=== PATIENT | female | born 1965 | race African-American/Black ===

== ENCOUNTER 2017-03-02 22:11 | Emergency (ER) | payer OTHER ==
[~2017-03-02] VITALS: Ht 170.2 cm; Wt 90.7 kg
[~2017-03-02 22:11] MED LIST: CARI-316 PO; HYDR-2616 PO
[2017-03-02 23:20] LABS: Basophils # (auto) 0 uL; Basophils % (auto) 0.1 % (0.0-2.0); CONDITION Y; Eosinophils # (auto) 0.1 uL; Eosinophils % (auto) 1.9 % (0.0-7.0); Hematocrit 32.4 % (36.0-46.0); Hemoglobin 10.7 g/dL (12.2-16.2); Lymphocytes # (auto) 1.6 uL; Lymphocytes % (auto) 35.5 % (10.0-50.0); Mean Corpuscular Hemoglobin 28.4 pg (28.0-32.0); Mean Corpuscular Hgb Conc. 33.1 g/dL (32.0-36.0); Mean Corpuscular Volume 85.7 fL (80.0-100.0); Monocytes # (auto) 0.6 uL; Neutrophils # (auto) 2.2 uL; Neutrophils % (auto) 48.5 % (37.0-80.0); Platelet Count (auto) 296 10^3/uL (140-450); Red Cell Distribution Width 13.1 % (11.6-16.0); White Blood Cell 4.6 10^3/uL (4.4-10.8)
[2017-03-02 23:58] LABS: Albumin 3.1 g/dL (3.4-5.0); Bilirubin, Total 0.3 mg/dL (0.2-1.0); Calcium 10.2 mg/dL (8.5-10.1); Potassium 3.8 mmol/L (3.5-5.1); Total Protein 6.7 g/dL (6.4-8.2)
[2017-03-03 05:40] VITALS: BP 148/98
[2017-03-03 06:28] LABS: Urine Bilirubin Negative (Negative); Urine Blood Negative /uL (Negative); Urine Ca Oxalate Crystal FEW (None Seen); Urine Color Yellow (Yellow); Urine Glucose Normal (Normal); Urine Ketone Negative (Negative); Urine Mucus FEW (None Seen); Urine Nitrite Negative (Negative); Urine RBC 2 /hpf (0 - 4); Urine Squamous Epithelial Cell FEW /hpf (<5); Urine Urobilinogen Normal (Negative); Urine pH 5.5 (5.0-8.0)
== END 2017-03-03 07:01 | disposition home or self-care (01) ==
LOC: EDBD 22:11 → ER 22:17
DX: R07.9 Chest pain, unspecified (principal); N39.0 Urinary tract infection, site not specified; I10 Essential (primary) hypertension; E78.5 Hyperlipidemia, unspecified; F17.210 Nicotine dependence, cigarettes, uncomplicated; Z88.6 Allergy status to analgesic agent; R06.02 Shortness of breath
CPT/HCPCS: 36415; 71020; 80053; 80307; 81001; 83880; 84484; 85025

== ENCOUNTER 2017-05-16 14:58 | Emergency (ER) | payer OTHER ==
[~2017-05-16] VITALS: Ht 167.6 cm; Wt 68.0 kg
[2017-05-16 15:52] LABS: Basophils # (auto) 0 uL; Eosinophils # (auto) 0.1 uL; Eosinophils % (auto) 1.5 % (0.0-7.0); Hematocrit 31.2 % (36.0-46.0); Hemoglobin 10.3 g/dL (12.2-16.2); Lymphocytes # (auto) 1.9 uL; Lymphocytes % (auto) 30.7 % (10.0-50.0); Mean Corpuscular Hemoglobin 28.2 pg (28.0-32.0); Mean Corpuscular Hgb Conc. 32.9 g/dL (32.0-36.0); Mean Corpuscular Volume 85.9 fL (80.0-100.0); Mean Platelet Volume 7.6 fL (6.9-10.8); Monocytes # (auto) 0.6 uL; Monocytes % (auto) 10.5 % (0.0-12.0); Neutrophils # (auto) 3.5 uL; Neutrophils % (auto) 57.3 % (37.0-80.0); Nucleated Red Blood Cells % 0.1 %; Platelet Count (auto) 262 10^3/uL (140-450); Red Cell Distribution Width 13.7 % (11.8-14.3); White Blood Cell 6.1 10^3/uL (4.4-10.8)
[2017-05-16 16:27] LABS: Albumin 3.3 g/dL (3.4-5.0); BUN/Creatinine Ratio 39.1; Bilirubin, Total 0.7 mg/dL (0.2-1.0); Calcium 9.5 mg/dL (8.5-10.1); Potassium 3.5 mmol/L (3.5-5.1); Total Protein 6.8 g/dL (6.4-8.2)
[2017-05-16 18:06] VITALS: BP 136/75
[2017-05-16] MEDS ORDERED: LORazepam 2MG/ML-1ML VIAL IM ONE (18:15)
[2017-05-16] MEDS ORDERED: KETOROLAC TROMETH 60MG/2ML VIAL IM ONE (18:15)
== END 2017-05-16 19:31 | disposition home or self-care (01) ==
LOC: EDBD 14:58 → ER 15:06
DX: S92.355A Nondisplaced fracture of fifth metatarsal bone, left foot, initial encounter for closed fracture (principal); I10 Essential (primary) hypertension; E78.5 Hyperlipidemia, unspecified; F17.210 Nicotine dependence, cigarettes, uncomplicated; Z88.6 Allergy status to analgesic agent; W01.0XXA Fall on same level from slipping, tripping and stumbling without subsequent striking against object, initial encounter; Y93.89 Activity, other specified; Y99.8 Other external cause status; Y92.89 Other specified places as the place of occurrence of the external cause
CPT/HCPCS: 36415; 71010; 73610; 73620; 80053; 84484; 85025; 93005; 96372; 99285; J1885; J2060

== ENCOUNTER 2017-06-01 02:48 | Inpatient (IN) | payer MEDICAID, OTHER ==
[~2017-06-01] VITALS: Ht 175.3 cm; Wt 77.2 kg
[2017-06-01 04:04] LABS: Basophils # (auto) 0 uL; Basophils % (auto) 0.2 % (0.0-2.0); Eosinophils # (auto) 0.2 uL; Eosinophils % (auto) 2.9 % (0.0-7.0); Hematocrit 31.6 % (36.0-46.0); Hemoglobin 10.4 g/dL (12.2-16.2); Lymphocytes # (auto) 2.4 uL; Lymphocytes % (auto) 37.5 % (10.0-50.0); Mean Corpuscular Hemoglobin 28.3 pg (28.0-32.0); Mean Corpuscular Hgb Conc. 32.9 g/dL (32.0-36.0); Mean Platelet Volume 7.5 fL (6.9-10.8); Monocytes # (auto) 0.6 uL; Monocytes % (auto) 9.7 % (0.0-12.0); Neutrophils # (auto) 3.1 uL; Neutrophils % (auto) 49.7 % (37.0-80.0); Nucleated Red Blood Cells % 0.1 %; Platelet Count (auto) 263 10^3/uL (140-450); Red Cell Distribution Width 13.7 % (11.8-14.3); White Blood Cell 6.3 10^3/uL (4.4-10.8)
[2017-06-01 04:30] LABS: Albumin 3.2 g/dL (3.4-5.0); BUN/Creatinine Ratio 36.4; Bilirubin, Total 0.4 mg/dL (0.2-1.0); Calcium 9.2 mg/dL (8.5-10.1); Potassium 3.5 mmol/L (3.5-5.1); Total Protein 6.6 g/dL (6.4-8.2)
[2017-06-01 04:34] LABS: B-Type Natriuretic Peptide 474.26 pg/mL (0-100)
[2017-06-01 05:02] LABS: Temperature: 21.8 C (20.0-25.0)
[2017-06-01] MEDS ORDERED: FUROSEMIDE 20 MG/2 ML VIAL IV ONE (05:45)
[2017-06-01] MEDS ORDERED: ASPirin 81 mg TAB PO ONE (06:00)
[2017-06-01] MEDS ORDERED: LACTULOSE 20Gm/30ML SOLN PO PRN (06:00)
[2017-06-01] MEDS ORDERED: MORPHINE SULF INJ 2 MG/ML SYRINGE 1ML IV PRN (06:00)
[2017-06-01] MEDS ORDERED: NITROGLYCERIN 0.4 MG SL TAB SL PRN (06:00)
[2017-06-01] MEDS ORDERED: HYDROmorphone HCL 2 MG/ML VL IV PRN (06:15)
[2017-06-01] MEDS: SODIUM CHLORIDE 0.9% 1,000 ML IV SCH ×2 (07:25→16:34)
[2017-06-01] MEDS: HYDROcodone-ACET 5/325MG TAB PO PRN ×3 (08:27→23:01)
[2017-06-01 08:29] VITALS: BP 132/76
[2017-06-01] MEDS ORDERED: ALPR0.25 PO (08:50)
[2017-06-01] MEDS ORDERED: OMEP20CA74 OR (08:50)
[2017-06-01] MEDS ORDERED: PROM25TA5 PO (08:50)
[2017-06-01] MEDS ORDERED: CALCCHW17 OR (08:50)
[2017-06-01] MEDS: FUROSEMIDE 40 MG/4 ML VIAL IV SCH (10:16)
[2017-06-01] MEDS: PANTOPRAZOLE 40 MG/10 ML VIAL IV SCH (10:16)
[2017-06-01] MEDS: POTASSIUM CHL 20 Meq TABLET PO SCH (10:17)
[2017-06-01] MEDS: ENALAPRIL MALEATE 2.5 MG TAB PO SCH (10:17)
[2017-06-01] MEDS: METOPROLOL TARTRATE 25 MG TAB PO SCH ×2 (10:17→21:16)
[2017-06-01] MEDS: ENOXAPARIN SOD 30 MG/0.3 ML SYRINGE SC SCH ×2 (10:17→10:26)
[2017-06-01] MEDS: ALPRAZolam 0.5 MG TAB PO PRN ×2 (10:26→20:22)
[2017-06-01] MEDS: ASPirin 81 mg TAB PO SCH (10:27)
[2017-06-01] MEDS ORDERED: DEXTROSE (50%) 50ML SYRG IV PRN (12:45)
[2017-06-01 12:57] VITALS: BP 119/75
[2017-06-01 15:57] LABS: Urine RBC None Seen /hpf (0 - 4)
[2017-06-01 16:13] VITALS: BP 120/66
[2017-06-01 16:15] LABS: Urine Bilirubin Negative (Negative); Urine Blood Negative /uL (Negative); Urine Color Yellow (Yellow); Urine Glucose Normal (Normal); Urine Hyaline Cast FEW /lpf (0 - 2); Urine Ketone Negative (Negative); Urine Nitrite Negative (Negative); Urine Squamous Epithelial Cell FEW /hpf (<5); Urine Urobilinogen Normal (Negative)
[2017-06-01] MEDS: ACCU-CHEK COMFORT CURVE STRIP VI SCH ×2 (16:25→21:16)
[2017-06-01] MEDS: InsuLIN REG 1unit/0.01ml Soln (100units/ml) SC SCH ×2 (16:33→21:16)
[2017-06-01] MEDS: Boost Glucose Control 8 Ounces PO SCH (18:05)
[2017-06-01] MEDS: ATORVASTATIN 20 MG TAB PO SCH (21:15)
[2017-06-01 21:42] VITALS: BP 122/72
[2017-06-02 05:16] VITALS: BP 115/70
[2017-06-02] MEDS: ACCU-CHEK COMFORT CURVE STRIP VI SCH ×4 (05:26→22:00)
[2017-06-02] MEDS: SODIUM CHLORIDE 0.9% 1,000 ML IV SCH ×2 (05:26→19:25)
[2017-06-02] MEDS: InsuLIN REG 1unit/0.01ml Soln (100units/ml) SC SCH ×3 (05:26→17:00)
[2017-06-02 06:08] LABS: Basophils # (auto) 0 uL; Basophils % (auto) 0.2 % (0.0-2.0); Eosinophils # (auto) 0.2 uL; Eosinophils % (auto) 4.8 % (0.0-7.0); Hematocrit 34.7 % (36.0-46.0); Hemoglobin 11.2 g/dL (12.2-16.2); Lymphocytes # (auto) 2.2 uL; Lymphocytes % (auto) 50.2 % (10.0-50.0); Mean Corpuscular Hemoglobin 27.7 pg (28.0-32.0); Mean Corpuscular Hgb Conc. 32.3 g/dL (32.0-36.0); Mean Corpuscular Volume 85.9 fL (80.0-100.0); Mean Platelet Volume 7.8 fL (6.9-10.8); Monocytes # (auto) 0.6 uL; Monocytes % (auto) 14.7 % (0.0-12.0); Neutrophils # (auto) 1.3 uL; Neutrophils % (auto) 30.1 % (37.0-80.0); Nucleated Red Blood Cells % 0.1 %; Platelet Count (auto) 281 10^3/uL (140-450); White Blood Cell 4.3 10^3/uL (4.4-10.8)
[2017-06-02 06:36] LABS: Albumin 3.3 g/dL (3.4-5.0); Alkaline Phosphatase 187 U/L (45-117); Anion Gap 9 (5-15); Aspartate Aminotransferase 23 U/L (15-37); BUN/Creatinine Ratio 67.9; Bilirubin, Total 0.4 mg/dL (0.2-1.0); Blood Urea Nitrogen 19 mg/dL (7-18); Calcium 9.6 mg/dL (8.5-10.1); Carbon Dioxide 27 mmol/L (21-32); Chloride 104 mmol/L (98-107); Cholesterol 128 mg/dL (< 200); GFR African American 325 mL/min; GFR Non-African American 269 mL/min; Glucose 77 mg/dL (74-106); HDL Cholesterol 41 mg/dL (40-59); LDL Cholesterol 88 mg/dL (< 100); Potassium 3.8 mmol/L (3.5-5.1); Sodium 140 mmol/L (136-145); Total Protein 6.8 g/dL (6.4-8.2); Triglycerides 77 mg/dL (< 150)
[2017-06-02] MEDS: Boost Glucose Control 8 Ounces PO SCH ×3 (08:18→18:12)
[2017-06-02 08:20] LABS: Temperature: 23.7 C (20.0-25.0)
[2017-06-02] MEDS: PANTOPRAZOLE 40 MG/10 ML VIAL IV SCH (08:39)
[2017-06-02] MEDS: ALPRAZolam 0.5 MG TAB PO PRN ×2 (08:39→20:22)
[2017-06-02 08:48] VITALS: BP 111/67
[2017-06-02 10:07] LABS: Thyroxine (T4) 17.9 ug/dL (4.5-12.0)
[2017-06-02] MEDS: HYDROcodone-ACET 5/325MG TAB PO PRN ×2 (10:22→18:37)
[2017-06-02] MEDS: FUROSEMIDE 40 MG/4 ML VIAL IV SCH (10:23)
[2017-06-02] MEDS: POTASSIUM CHL 20 Meq TABLET PO SCH (10:23)
[2017-06-02] MEDS: ASPirin 81 mg TAB PO SCH (10:23)
[2017-06-02] MEDS: ENALAPRIL MALEATE 2.5 MG TAB PO SCH (10:23)
[2017-06-02] MEDS: METOPROLOL TARTRATE 25 MG TAB PO SCH (10:23)
[2017-06-02 12:30] VITALS: BP 97/41
[2017-06-02 17:00] VITALS: BP 118/60
[2017-06-02 21:56] VITALS: BP 127/74
[2017-06-02] MEDS ORDERED: ACETAMINOPHEN 500 MG TAB PO PRN (23:30)
[2017-06-03] MEDS: ATORVASTATIN 20 MG TAB PO SCH ×2 (00:18→21:45)
[2017-06-03] MEDS: InsuLIN REG 1unit/0.01ml Soln (100units/ml) SC SCH ×5 (00:19→21:52)
[2017-06-03] MEDS: METOPROLOL TARTRATE 25 MG TAB PO SCH ×3 (00:19→21:45)
[2017-06-03] MEDS: ALPRAZolam 0.5 MG TAB PO PRN (04:10)
[2017-06-03 05:19] VITALS: BP 121/73
[2017-06-03] MEDS: ACCU-CHEK COMFORT CURVE STRIP VI SCH ×4 (05:21→21:45)
[2017-06-03] MEDS: HYDROcodone-ACET 5/325MG TAB PO PRN ×2 (06:50→19:58)
[2017-06-03] MEDS: Boost Glucose Control 8 Ounces PO SCH ×3 (08:22→18:02)
[2017-06-03 09:00] VITALS: BP 127/62
[2017-06-03] MEDS: PANTOPRAZOLE 40 MG/10 ML VIAL IV SCH (09:48)
[2017-06-03] MEDS: ASPirin 81 mg TAB PO SCH (09:48)
[2017-06-03] MEDS: FUROSEMIDE 40 MG/4 ML VIAL IV SCH (09:48)
[2017-06-03] MEDS: SODIUM CHLORIDE 0.9% 1,000 ML IV SCH (09:49)
[2017-06-03] MEDS: ENALAPRIL MALEATE 2.5 MG TAB PO SCH (09:49)
[2017-06-03] MEDS: POTASSIUM CHL 20 Meq TABLET PO SCH (09:49)
[2017-06-03] MEDS: ENOXAPARIN SOD 30 MG/0.3 ML SYRINGE SC SCH (09:50)
[2017-06-03 13:00] VITALS: BP 113/65
[2017-06-03] MEDS: diphenhdrAMINE HCL 25 MG CAP PO PRN (14:19)
[2017-06-03 17:00] VITALS: BP 121/95
[2017-06-03 22:23] VITALS: BP 111/60
[2017-06-04] MEDS: HYDROcodone-ACET 5/325MG TAB PO PRN ×4 (01:59→23:32)
[2017-06-04 05:17] VITALS: BP 125/58
[2017-06-04] MEDS: ACCU-CHEK COMFORT CURVE STRIP VI SCH ×4 (06:48→22:08)
[2017-06-04] MEDS: InsuLIN REG 1unit/0.01ml Soln (100units/ml) SC SCH ×4 (06:49→22:16)
[2017-06-04 09:00] VITALS: BP 128/87
[2017-06-04] MEDS: ENOXAPARIN SOD 30 MG/0.3 ML SYRINGE SC SCH (10:00)
[2017-06-04] MEDS: Boost Glucose Control 8 Ounces PO SCH ×3 (10:11→18:00)
[2017-06-04] MEDS: PANTOPRAZOLE 40 MG/10 ML VIAL IV SCH (10:11)
[2017-06-04] MEDS: FUROSEMIDE 40 MG/4 ML VIAL IV SCH (10:11)
[2017-06-04] MEDS: METOPROLOL TARTRATE 25 MG TAB PO SCH ×3 (10:12→23:08)
[2017-06-04] MEDS: ASPirin 81 mg TAB PO SCH (10:12)
[2017-06-04 12:56] VITALS: BP 144/84
[2017-06-04 16:56] VITALS: BP 125/67
[2017-06-04] MEDS: diphenhdrAMINE HCL 25 MG CAP PO PRN (17:23)
[2017-06-04 22:00] VITALS: BP 131/65
[2017-06-04] MEDS: ATORVASTATIN 20 MG TAB PO SCH (22:08)
[2017-06-05 05:00] VITALS: BP 118/67
[2017-06-05] MEDS: HYDROcodone-ACET 5/325MG TAB PO PRN ×2 (05:32→16:09)
[2017-06-05] MEDS: ACCU-CHEK COMFORT CURVE STRIP VI SCH ×4 (06:36→21:55)
[2017-06-05] MEDS: InsuLIN REG 1unit/0.01ml Soln (100units/ml) SC SCH ×4 (06:37→21:55)
[2017-06-05 09:00] VITALS: BP 124/83
[2017-06-05] MEDS: FUROSEMIDE 40 MG/4 ML VIAL IV SCH (09:55)
[2017-06-05] MEDS: PANTOPRAZOLE 40 MG/10 ML VIAL IV SCH (09:55)
[2017-06-05] MEDS: ASPirin 81 mg TAB PO SCH (09:55)
[2017-06-05] MEDS: METOPROLOL TARTRATE 25 MG TAB PO SCH ×2 (09:55→21:55)
[2017-06-05] MEDS: Boost Glucose Control 8 Ounces PO SCH ×3 (10:04→17:48)
[2017-06-05] MEDS: ENOXAPARIN SOD 30 MG/0.3 ML SYRINGE SC SCH (10:04)
[2017-06-05 13:00] VITALS: BP_SYST 110; BP_SYST 121; BP_DIAS 62; BP_DIAS 78
[2017-06-05] MEDS: ALPRAZolam 0.5 MG TAB PO PRN (13:38)
[2017-06-05 17:00] VITALS: BP 147/70
[2017-06-05] MEDS: ATORVASTATIN 20 MG TAB PO SCH (21:54)
[2017-06-05 22:00] VITALS: BP 117/81
[2017-06-06] MEDS: HYDROcodone-ACET 5/325MG TAB PO PRN ×2 (02:45→08:47)
[2017-06-06 05:00] VITALS: BP 128/73
[2017-06-06] MEDS: InsuLIN REG 1unit/0.01ml Soln (100units/ml) SC SCH ×2 (07:00→11:30)
[2017-06-06] MEDS: ACCU-CHEK COMFORT CURVE STRIP VI SCH ×2 (07:00→11:30)
[2017-06-06 08:00] VITALS: BP 127/71
[2017-06-06] MEDS: Boost Glucose Control 8 Ounces PO SCH ×2 (08:00→12:00)
[2017-06-06 08:49] VITALS: BP 127/71
[2017-06-06] MEDS: FUROSEMIDE 40 MG/4 ML VIAL IV SCH ×2 (10:00→10:43)
[2017-06-06] MEDS: PANTOPRAZOLE 40 MG/10 ML VIAL IV SCH (10:42)
[2017-06-06] MEDS: ENOXAPARIN SOD 30 MG/0.3 ML SYRINGE SC SCH (10:43)
[2017-06-06] MEDS: ASPirin 81 mg TAB PO SCH (10:43)
[2017-06-06] MEDS: METOPROLOL TARTRATE 25 MG TAB PO SCH (10:43)
[2017-06-06 13:00] VITALS: BP 132/79
[2017-06-06 14:11] VITALS: BP 127/71
== END 2017-06-06 14:35 | disposition home or self-care (01) | DRG 424 ==
LOC: EDBD 02:48 → ER 02:48 → TELE 02:49 → TELE-E-ADS 08:13 → TELE-WESTW 10:48
PROVIDERS: ADMIT Family Medicine; ATTEND Internal Medicine Pulmonary Disease
DX: E05.20 Thyrotoxicosis with toxic multinodular goiter without thyrotoxic crisis or storm (principal); I11.0 Hypertensive heart disease with heart failure; E44.0 Moderate protein-calorie malnutrition; I50.9 Heart failure, unspecified; E78.5 Hyperlipidemia, unspecified; F41.9 Anxiety disorder, unspecified; K21.9 Gastro-esophageal reflux disease without esophagitis; D63.8 Anemia in other chronic diseases classified elsewhere; Z88.5 Allergy status to narcotic agent; Z82.49 Family history of ischemic heart disease and other diseases of the circulatory system; Z82.3 Family history of stroke; Z68.25 Body mass index [BMI] 25.0-25.9, adult
CPT/HCPCS: 36415; 71010; 76536; 80053; 80061; 81001; 82962; 83036; 83880; 84443; 84484; 85025; 87081; 93005; 93306; 96374; 96375; 96376; C9113; J1815

== ENCOUNTER 2017-06-23 16:36 | Inpatient (IN) | payer OTHER ==
[~2017-06-23] VITALS: Ht 167.6 cm; Wt 72.9 kg
[~2017-06-23 16:36] MED LIST changes: +ALPR0.25 PO; +CALCCHW17 OR; +OMEP20CA74 OR; +PROM25TA5 PO
[2017-06-23 18:21] LABS: Basophils # (auto) 0 uL; Basophils % (auto) 0.2 % (0.0-2.0); Eosinophils # (auto) 0.1 uL; Eosinophils % (auto) 1.5 % (0.0-7.0); Hematocrit 35.7 % (36.0-46.0); Hemoglobin 11.6 g/dL (12.2-16.2); Lymphocytes # (auto) 1.9 uL; Mean Corpuscular Hemoglobin 27.9 pg (28.0-32.0); Mean Corpuscular Hgb Conc. 32.5 g/dL (32.0-36.0); Mean Corpuscular Volume 85.8 fL (80.0-100.0); Monocytes # (auto) 0.7 uL; Neutrophils # (auto) 2.2 uL; Neutrophils % (auto) 45.3 % (37.0-80.0); Nucleated Red Blood Cells % 0.1 %; Platelet Count (auto) 255 10^3/uL (140-450); Red Blood Cells 4.16 10^6/uL (4.0-5.20); Red Cell Distribution Width 13.8 % (11.8-14.3); White Blood Cell 4.9 10^3/uL (4.4-10.8)
[2017-06-23 18:39] LABS: Alanine Aminotransferase 60 U/L (13-56); Albumin 3.5 g/dL (3.4-5.0); Alkaline Phosphatase 245 U/L (45-117); Anion Gap 6 (5-15); Aspartate Aminotransferase 40 U/L (15-37); Bilirubin, Total 0.4 mg/dL (0.2-1.0); Blood Urea Nitrogen 16 mg/dL (7-18); Carbon Dioxide 28 mmol/L (21-32); Chloride 110 mmol/L (98-107); GFR African American 279 mL/min; GFR Non-African American 230 mL/min; Glucose 93 mg/dL (74-106); Magnesium 1.8 mg/dL (1.6-2.6); Potassium 4.5 mmol/L (3.5-5.1); Sodium 144 mmol/L (136-145); Total Protein 7.1 g/dL (6.4-8.2)
[2017-06-23] MEDS ORDERED: diphenhdrAMINE HCL 50 MG/1 ML VL IV ONE (20:30)
[2017-06-23 22:32] LABS: Urine Amorphous Crystal FEW /hpf (None Seen); Urine Bacteria NONE SEEN /hpf (None Seen); Urine Blood Negative /uL (Negative); Urine Specific Gravity 1.014 (1.001-1.035); Urine WBC 1 /hpf (0 - 5)
[2017-06-23 22:37] LABS: Alcohol, Urine < 3.0 mg/dL (0-5); Amphetamine Screen, Urine NEGATIVE (NEGATIVE); Barbiturate Scree,Urine NEGATIVE (NEGATIVE); Benzodiazephine Screen, Urine NEGATIVE (NEGATIVE); Cannabinoid Screen, Urine NEGATIVE (NEGATIVE); Cocaine Screen, Urine NEGATIVE (NEGATIVE); Opiate Scree,Urine NEGATIVE (NEGATIVE); Phencyclidine Screen, Urine NEGATIVE (NEGATIVE)
[2017-06-23] MEDS ORDERED: HYDROcodone-ACET 5/325MG TAB PO PRN (23:45)
[2017-06-23] MEDS ORDERED: NITROGLYCERIN 0.4 MG SL TAB SL PRN (23:45)
[2017-06-24] VITALS (7 sets, daily range): BP systolic 128–139; BP diastolic 66–81
[2017-06-24] MEDS ORDERED: ONDANSETRON HCL 4 MG/2 ML VIAL IV PRN ×2
[2017-06-24] MEDS: ALPRAZolam 0.5 MG TAB PO PRN ×2 (01:40→22:18)
[2017-06-24] MEDS ORDERED: PANT40TA2 PO (02:55)
[2017-06-24] MEDS ORDERED: MET50T PO (02:55)
[2017-06-24 06:39] LABS: Basophils # (auto) 0 uL; Basophils % (auto) 0.3 % (0.0-2.0); Eosinophils # (auto) 0.1 uL; Eosinophils % (auto) 2.3 % (0.0-7.0); Hematocrit 34.2 % (36.0-46.0); Hemoglobin 11.1 g/dL (12.2-16.2); Lymphocytes # (auto) 2.4 uL; Lymphocytes % (auto) 48.9 % (10.0-50.0); Mean Corpuscular Hemoglobin 27.9 pg (28.0-32.0); Mean Corpuscular Hgb Conc. 32.4 g/dL (32.0-36.0); Mean Corpuscular Volume 85.9 fL (80.0-100.0); Monocytes # (auto) 0.7 uL; Monocytes % (auto) 13.4 % (0.0-12.0); Neutrophils # (auto) 1.7 uL; Neutrophils % (auto) 35.1 % (37.0-80.0); Nucleated Red Blood Cells % 0.3 %; Platelet Count (auto) 231 10^3/uL (140-450); Red Blood Cells 3.98 10^6/uL (4.0-5.20); Red Cell Distribution Width 13.5 % (11.8-14.3)
[2017-06-24 06:57] LABS: Anion Gap 9 (5-15); BUN/Creatinine Ratio 43.3; Blood Urea Nitrogen 13 mg/dL (7-18); Calcium 9.7 mg/dL (8.5-10.1); Carbon Dioxide 28 mmol/L (21-32); Chloride 106 mmol/L (98-107); GFR African American 300 mL/min; GFR Non-African American 248 mL/min; Glucose 100 mg/dL (74-106); Potassium 3.6 mmol/L (3.5-5.1); Sodium 143 mmol/L (136-145)
[2017-06-24] MEDS: PANTOPRAZOLE 40 MG TAB PO SCH (09:48)
[2017-06-24] MEDS: METOPROLOL TARTRATE 25 MG TAB PO SCH ×2 (09:51→22:18)
[2017-06-24] MEDS ORDERED: diphenhdrAMINE HCL 25 MG CAP PO ONE (17:15)
[2017-06-25] MEDS: TEMAZEPAM 15 MG CAP PO PRN (00:32)
[2017-06-25 05:23] VITALS: BP 144/68
[2017-06-25 08:00] VITALS: BP 136/76
[2017-06-25 08:08] LABS: Albumin 3.2 g/dL (3.4-5.0); BUN/Creatinine Ratio 41.4; Bilirubin, Total 0.8 mg/dL (0.2-1.0); Calcium 10.3 mg/dL (8.5-10.1); Potassium 3.6 mmol/L (3.5-5.1); Total Protein 6.8 g/dL (6.4-8.2)
[2017-06-25 08:23] VITALS: BP 136/76
[2017-06-25] MEDS: PANTOPRAZOLE 40 MG TAB PO SCH (09:35)
[2017-06-25] MEDS: METOPROLOL TARTRATE 25 MG TAB PO SCH ×2 (09:35→21:30)
[2017-06-25 12:10] VITALS: BP 126/67
[2017-06-25 16:31] VITALS: BP 127/65
[2017-06-25] MEDS: ALPRAZolam 0.5 MG TAB PO PRN (21:29)
[2017-06-25 22:08] VITALS: BP 136/73
[2017-06-26] MEDS: TEMAZEPAM 15 MG CAP PO PRN (01:11)
[2017-06-26 05:49] VITALS: BP 118/64
[2017-06-26] MEDS ORDERED: ADENOSINE 61 MG in GIVE UN-DILUTED 0 ML IV STA (07:55)
[2017-06-26 09:00] VITALS: BP 122/70
[2017-06-26 12:16] VITALS: BP 122/70
[2017-06-26] MEDS: PANTOPRAZOLE 40 MG TAB PO SCH (12:44)
[2017-06-26] MEDS: METOPROLOL TARTRATE 25 MG TAB PO SCH (12:44)
[2017-06-26 13:00] VITALS: BP 127/73
[2017-06-26 17:00] VITALS: BP 121/71
== END 2017-06-26 18:05 | disposition home or self-care (01) | DRG 198 ==
LOC: ER 16:36 → EDBD 16:36 → TELE 16:37 → TELE-CENTR 06-24 01:30
PROVIDERS: ADMIT Nurse Practitioner Family; ATTEND Internal Medicine
DX: R07.89 Other chest pain (principal); I25.10 Atherosclerotic heart disease of native coronary artery without angina pectoris; I11.0 Hypertensive heart disease with heart failure; I50.9 Heart failure, unspecified; D64.9 Anemia, unspecified; E05.00 Thyrotoxicosis with diffuse goiter without thyrotoxic crisis or storm; K21.9 Gastro-esophageal reflux disease without esophagitis; E03.9 Hypothyroidism, unspecified; F17.210 Nicotine dependence, cigarettes, uncomplicated; F41.9 Anxiety disorder, unspecified; Z79.899 Other long term (current) drug therapy; Z82.3 Family history of stroke; Z82.49 Family history of ischemic heart disease and other diseases of the circulatory system; Z86.73 Personal history of transient ischemic attack (TIA), and cerebral infarction without residual deficits; Z88.5 Allergy status to narcotic agent
CPT/HCPCS: 36415; 71010; 78452; 80048; 80053; 80307; 81001; 83735; 84484; 85025; 87081; 93005; 93017; 93306; 96374; J0153

== ENCOUNTER 2017-07-22 02:38 | Emergency (ER) | payer OTHER ==
[~2017-07-22] VITALS: Ht 175.3 cm; Wt 71.2 kg
[~2017-07-22 02:38] MED LIST changes: -ALPR0.25 PO; -CALCCHW17 OR; -CARI-316 PO; -HYDR-2616 PO; +MET50T PO; -OMEP20CA74 OR; +PANT40TA2 PO; -PROM25TA5 PO
[2017-07-22] MEDS ORDERED: cloNIDine HCL 0.1 MG TAB PO ONE (03:00)
[2017-07-22] MEDS ORDERED: ONDANSETRON HCL 4 MG/2 ML VIAL IV ONE (03:00)
[2017-07-22] MEDS ORDERED: MEPERIDINE HCL (50 MG/ML) 1 ML VIAL IV ONE (03:00)
[2017-07-22 03:30] LABS: Basophils # (auto) 0 uL; Basophils % (auto) 0.4 % (0.0-2.0); Eosinophils # (auto) 0.1 uL; Eosinophils % (auto) 1.5 % (0.0-7.0); Hematocrit 32.8 % (36.0-46.0); Hemoglobin 10.6 g/dL (12.2-16.2); Lymphocytes # (auto) 2.4 uL; Mean Corpuscular Hemoglobin 27.5 pg (28.0-32.0); Mean Corpuscular Hgb Conc. 32.3 g/dL (32.0-36.0); Mean Corpuscular Volume 85.4 fL (80.0-100.0); Mean Platelet Volume 7.8 fL (6.9-10.8); Monocytes # (auto) 0.8 uL; Monocytes % (auto) 15.8 % (0.0-12.0); Neutrophils # (auto) 1.9 uL; Neutrophils % (auto) 36.3 % (37.0-80.0); Nucleated Red Blood Cells % 0.2 %; Platelet Count (auto) 243 10^3/uL (140-450); Red Cell Distribution Width 13.4 % (11.8-14.3); White Blood Cell 5.2 10^3/uL (4.4-10.8)
[2017-07-22] MEDS ORDERED: diphenhdrAMINE HCL 50 MG/1 ML VL IV ONE (03:30)
[2017-07-22 03:46] LABS: Anion Gap 8 (5-15); Aspartate Aminotransferase 25 U/L (15-37); BUN/Creatinine Ratio 34.3; Blood Urea Nitrogen 12 mg/dL (7-18); Calcium 9.6 mg/dL (8.5-10.1); Carbon Dioxide 27 mmol/L (21-32); Chloride 109 mmol/L (98-107); GFR African American 251 mL/min; GFR Non-African American 208 mL/min; Glucose 108 mg/dL (74-106); Magnesium 1.5 mg/dL (1.6-2.6); Potassium 3.6 mmol/L (3.5-5.1); Sodium 144 mmol/L (136-145)
[2017-07-22 03:48] LABS: INR 1.03 (0.9-1.15); Partial Thromboplastin Time 28.6 sec (22.64-33.71); Prothrombin Time 11.2 sec (9.37-12.3)
[2017-07-22 03:51] LABS: Alkaline Phosphatase 180 U/L (45-117); Bilirubin, Total 0.4 mg/dL (0.2-1.0); Total Protein 6.5 g/dL (6.4-8.2)
[2017-07-22 03:56] LABS: Temperature: 21.3 C (20.0-25.0)
[2017-07-22] MEDS ORDERED: FUROSEMIDE 20 MG/2 ML VIAL IV ONE (05:15)
[2017-07-22 11:50] VITALS: BP 140/77
== END 2017-07-22 11:43 | disposition home or self-care (01) ==
LOC: EDBD 02:38 → ER 02:43
DX: I11.0 Hypertensive heart disease with heart failure (principal); I50.9 Heart failure, unspecified; F41.9 Anxiety disorder, unspecified; K21.9 Gastro-esophageal reflux disease without esophagitis; E78.5 Hyperlipidemia, unspecified; F17.210 Nicotine dependence, cigarettes, uncomplicated; Z88.6 Allergy status to analgesic agent
CPT/HCPCS: 36415; 71010; 80053; 83735; 83880; 84443; 84484; 85025; 85610; 85730; 93005; 94761; 96374; 96375; 99285; J1200; J1940; J2175; J2405

== ENCOUNTER 2019-04-26 13:39 | Emergency (ER) | payer MEDICAID, OTHER ==
[~2019-04-26] VITALS: Ht 177.8 cm; Wt 90.7 kg
[2019-04-26 15:24] LABS: Basophils # (auto) 0 uL; Basophils % (auto) 0.5 % (0.0-2.0); Eosinophils # (auto) 0.4 uL; Eosinophils % (auto) 6.4 % (0.0-7.0); Hematocrit 39.9 % (36.0-46.0); Hemoglobin 13.2 g/dL (12.2-16.2); Lymphocytes # (auto) 1.8 uL; Lymphocytes % (auto) 30.4 % (10.0-50.0); Mean Corpuscular Hgb Conc. 33.2 g/dL (32.0-36.0); Mean Corpuscular Volume 93.4 fL (80.0-100.0); Monocytes # (auto) 0.4 uL; Monocytes % (auto) 6.5 % (0.0-12.0); Neutrophils # (auto) 3.3 uL; Neutrophils % (auto) 56.2 % (37.0-80.0); Nucleated Red Blood Cells % 0.1 %; Platelet Count (auto) 284 10^3/uL (140-450); Red Blood Cells 4.27 10^6/uL (4.0-5.20); Red Cell Distribution Width 13.7 % (11.8-14.3); White Blood Cell 5.9 10^3/uL (4.4-10.8)
[2019-04-26 15:46] LABS: Albumin 3.8 g/dL (3.4-5.0); Anion Gap 4 (5-15); Blood Urea Nitrogen 9 mg/dL (7-18); Calcium 8.7 mg/dL (8.5-10.1); Carbon Dioxide 27 mmol/L (21-32); Chloride 109 mmol/L (98-107); Glucose 90 mg/dL (74-106); Potassium 4.3 mmol/L (3.5-5.1); Sodium 140 mmol/L (136-145)
[2019-04-26 15:51] LABS: Alanine Aminotransferase 14 U/L (13-56); Alkaline Phosphatase 116 U/L (45-117); Aspartate Aminotransferase 11 U/L (15-37); BUN/Creatinine Ratio 16.4; Bilirubin, Total 0.4 mg/dL (0.2-1.0); GFR African American 148 mL/min; GFR Non-African American 122 mL/min; Total Protein 7.3 g/dL (6.4-8.2)
[2019-04-26] MEDS ORDERED: ACETAMINOPHEN 325 MG TAB PO ONE (20:45)
[2019-04-26 21:43] VITALS: BP 133/75
== END 2019-04-26 22:23 | disposition home or self-care (01) ==
LOC: ER 13:39 → EDBD 13:39 → EDUNIT# 13:39 → ER 22:21
DX: I16.0 Hypertensive urgency (principal); K21.9 Gastro-esophageal reflux disease without esophagitis; E78.00 Pure hypercholesterolemia, unspecified; F17.210 Nicotine dependence, cigarettes, uncomplicated; Z88.5 Allergy status to narcotic agent; Z79.899 Other long term (current) drug therapy
CPT/HCPCS: 36415; 71045; 80053; 84484; 85025; 93005

== ENCOUNTER 2020-05-24 13:51 | Inpatient (IN) | payer MEDICAID ==
[~2020-05-24] VITALS: Ht 175.3 cm; Wt 98.5 kg
[2020-05-24] MEDS ORDERED: ASPirin 81 mg TAB PO ONE (15:00)
[2020-05-24 15:28] LABS: Basophils # (auto) 0 10 ^3/uL (0-0.2); Basophils % (auto) 0.3 % (0.0-2.0); Eosinophils # (auto) 0.2 10 ^3/uL (0-0.8); Hematocrit 39.5 % (36.0-46.0); Hemoglobin 12.9 g/dL (12.2-16.2); Lymphocytes # (auto) 1.7 10 ^3/uL (0.4-5.4); Lymphocytes % (auto) 33.9 % (10.0-50.0); Mean Corpuscular Hemoglobin 31.7 pg (28.0-32.0); Mean Corpuscular Hgb Conc. 32.7 g/dL (32.0-36.0); Mean Corpuscular Volume 96.7 fL (80.0-100.0); Monocytes # (auto) 0.4 10 ^3/uL (0-1.3); Monocytes % (auto) 7.5 % (0.0-12.0); Neutrophils # (auto) 2.7 10 ^3/uL (1.6-8.6); Neutrophils % (auto) 54.3 % (37.0-80.0); Nucleated Red Blood Cells % 0.1 %; Platelet Count (auto) 266 10^3/uL (140-450); Red Blood Cells 4.08 10^6/uL (4.0-5.20); Red Cell Distribution Width 14.7 % (11.8-14.3); White Blood Cell 4.9 10^3/uL (4.4-10.8)
[2020-05-24 15:46] LABS: Albumin 4.3 g/dL (3.4-5.0); Anion Gap 2 (5-15); Blood Urea Nitrogen 13 mg/dL (7-18); Calcium 8.9 mg/dL (8.5-10.1); Carbon Dioxide 28 mmol/L (21-32); Chloride 113 mmol/L (98-107); Glucose 83 mg/dL (74-106); Potassium 4.4 mmol/L (3.5-5.1); Sodium 143 mmol/L (136-145)
[2020-05-24 15:52] LABS: Alanine Aminotransferase 19 U/L (13-56); Alkaline Phosphatase 116 U/L (45-117); Aspartate Aminotransferase 11 U/L (15-37); Bilirubin, Total 0.3 mg/dL (0.2-1.0); GFR African American 94 mL/min; GFR Non-African American 78 mL/min; Total Protein 7.4 g/dL (6.4-8.2)
[2020-05-24] MEDS ORDERED: NITROGLYCERIN 0.4 MG SL TAB SL PRN ×2 (17:15→20:30)
[2020-05-24] MEDS ORDERED: METH10TA6 PO (17:49)
[2020-05-24] MEDS ORDERED: CHOL20009 PO (17:49)
[2020-05-24] MEDS ORDERED: LEVO75TA6 PO (17:49)
[2020-05-24] MEDS ORDERED: BACL10TA PO (17:49)
[2020-05-24] MEDS ORDERED: HYDR-392 PO (17:49)
[2020-05-24] MEDS ORDERED: PROM25TA5 PO (17:49)
[2020-05-24] MEDS ORDERED: ACET-1304 PO (17:50)
[2020-05-24] MEDS ORDERED: DIPH25TA35 PO (17:50)
[2020-05-24] MEDS ORDERED: METOPROLOL TARTRATE 25 MG TAB PO ONE (20:30)
[2020-05-24] MEDS: SODIUM CHLORIDE 0.9% 1,000 ML IV SCH (20:30)
[2020-05-24] MEDS ORDERED: ATORVASTATIN 20 MG TAB PO ONE (20:30)
[2020-05-24] MEDS ORDERED: ALUM & MAG HYDROX-SIMETH LIQ(MAALOX) 30 ML PO ONE (20:30)
[2020-05-24] MEDS ORDERED: HYDROcodone-ACET 5/325MG TAB PO PRN (20:30)
[2020-05-24] MEDS ORDERED: ACETAMINOPHEN 325 MG TAB PO PRN (20:30)
[2020-05-24] MEDS ORDERED: ONDANSETRON HCL 4 MG/2 ML VIAL IV PRN (20:30)
[2020-05-24] MEDS ORDERED: ACETAMINOPHEN 500 MG TAB PO PRN (20:30)
[2020-05-24] MEDS ORDERED: BACLOFEN 10 MG TAB PO PRN (20:30)
[2020-05-24] MEDS ORDERED: LORazepam 0.5 MG TAB PO PRN (20:30)
[2020-05-24] MEDS: HYDROcodone-ACET 7.5/325MG TAB PO PRN (21:00)
[2020-05-24] MEDS: ENOXAPARIN SOD 30 MG/0.3 ML SYRINGE SC SCH (21:37)
--- NOTE | 2020-05-24 21:40 | NUR ---
TELE ADMIT FROM ER Received patient from ER via wheelchair, VS are as followed, HR:54 BP: 147/81 RR:18 TEMP:98.1 O2:96%. Patient denies pain at this time. Currently on RA with no S/S of distress or SOB noted. PIV to the left hand 22 gauge running 75ml/hr of NS. Ambulatory without assistance. Patient is on Tele monitor #26 running Sinus Joseph at 54bpm. Patient is oriented to room and hospital policies. Bed in lowest position, locked, side rails x2 up, call light within reach. POC discussed and all questions answered. Patient is instructed to call for assistance as needed. Will continue to monitor PRN.
[2020-05-24 22:00] VITALS: BP 147/81
[2020-05-24] MEDS ORDERED: methIMAzole 5 MG TAB PO SCH ×2 (22:00)
[2020-05-24] MEDS: METOPROLOL TARTRATE 25 MG TAB PO SCH (22:00)
[2020-05-24] MEDS: FAMOTIDINE 20 MG TAB PO SCH (22:21)
[2020-05-24] MEDS: ATORVASTATIN 20 MG TAB PO SCH (22:21)
[2020-05-24 23:17] VITALS: BP 147/81
[2020-05-25] MEDS: HYDROcodone-ACET 7.5/325MG TAB PO PRN ×2 (04:26→19:38)
[2020-05-25] MEDS: hydrALAZINE HCL 25 MG TAB PO PRN (05:23)
[2020-05-25 05:30] VITALS: BP 159/79
[2020-05-25] MEDS: LEVOTHYROXINE SODIUM 25 MCG TAB PO SCH (06:32)
[2020-05-25] MEDS ORDERED: LEVOTHYROXINE SODIUM 25 MCG TAB PO SCH (07:00)
[2020-05-25 08:00] VITALS: BP 147/90
[2020-05-25] MEDS: CALCIUM CARB 500 MG CHEW TAB PO SCH ×3 (08:00→17:22)
--- NOTE | 2020-05-25 08:00 | NUR ---
Received pt resting in bed, call light within reach, no pain or distress noted or reported, will continue to monitor pt.
[2020-05-25] MEDS: FAMOTIDINE 20 MG TAB PO SCH ×2 (08:59→21:10)
[2020-05-25] MEDS: ASPirin 81 mg TAB PO SCH (08:59)
[2020-05-25 09:00] VITALS: BP 147/90
[2020-05-25] MEDS: METOPROLOL TARTRATE 25 MG TAB PO SCH ×2 (09:00→21:11)
[2020-05-25] MEDS: DOCUSATE SOD 100 MG CAP PO SCH (09:02)
[2020-05-25] MEDS: SODIUM CHLORIDE 0.9% 1,000 ML IV SCH ×2 (09:03→23:10)
[2020-05-25] MEDS: CHOLECALCIFEROL (VITD3) 2,000 UNIT CAP PO SCH (09:03)
[2020-05-25] MEDS: ENOXAPARIN SOD 30 MG/0.3 ML SYRINGE SC SCH (09:03)
--- NOTE | 2020-05-25 11:20 | NUR ---
Paged and left a message for Dr. 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
[2020-05-25 13:00] VITALS: BP 149/96
[2020-05-25 17:00] VITALS: BP 134/89
[2020-05-25] MEDS: ATORVASTATIN 20 MG TAB PO SCH (21:10)
[2020-05-25 22:05] VITALS: BP 130/80
[2020-05-26 05:07] VITALS: BP 131/62
[2020-05-26] MEDS: LEVOTHYROXINE SODIUM 25 MCG TAB PO SCH (05:53)
--- NOTE | 2020-05-26 06:52 | NUR ---
end of shift note will endorse pt care to day shift RN. pt aox4, no s/s of distress or sob
[2020-05-26 07:10] LABS: BUN/Creatinine Ratio 17.8; Calcium 8.8 mg/dL (8.5-10.1)
[2020-05-26 08:00] VITALS: BP 158/87
[2020-05-26] MEDS ORDERED: ADENOSINE 84 MG in GIVE UN-DILUTED 0 ML IV STA (08:33)
[2020-05-26 09:00] VITALS: BP 158/87
--- NOTE | 2020-05-26 09:20 | NUR ---
PT OFF UNIT FOR STRESS TEST.
[2020-05-26] MEDS: CHOLECALCIFEROL (VITD3) 2,000 UNIT CAP PO SCH (10:00)
[2020-05-26] MEDS: FAMOTIDINE 20 MG TAB PO SCH ×2 (10:39→22:23)
[2020-05-26] MEDS: CALCIUM CARB 500 MG CHEW TAB PO SCH ×3 (10:40→17:07)
[2020-05-26] MEDS: DOCUSATE SOD 100 MG CAP PO SCH (10:40)
[2020-05-26] MEDS: ASPirin 81 mg TAB PO SCH (10:40)
[2020-05-26] MEDS: ENOXAPARIN SOD 30 MG/0.3 ML SYRINGE SC SCH (10:41)
[2020-05-26] MEDS: METOPROLOL TARTRATE 25 MG TAB PO SCH ×2 (10:46→22:00)
[2020-05-26] MEDS: HYDROcodone-ACET 7.5/325MG TAB PO PRN ×2 (10:55→20:59)
[2020-05-26] MEDS: SODIUM CHLORIDE 0.9% 1,000 ML IV SCH (12:44)
[2020-05-26 12:58] VITALS: BP 138/90
[2020-05-26 16:46] VITALS: BP 126/89
[2020-05-26 17:31] LABS: Basophils # (auto) 0 10 ^3/uL (0-0.2); Basophils % (auto) 0.3 % (0.0-2.0); Eosinophils # (auto) 0.1 10 ^3/uL (0-0.8); Eosinophils % (auto) 3.2 % (0.0-7.0); Hematocrit 38.8 % (36.0-46.0); Hemoglobin 12.8 g/dL (12.2-16.2); Lymphocytes # (auto) 1.4 10 ^3/uL (0.4-5.4); Lymphocytes % (auto) 31.6 % (10.0-50.0); Mean Corpuscular Hemoglobin 31.7 pg (28.0-32.0); Mean Corpuscular Volume 96.1 fL (80.0-100.0); Monocytes # (auto) 0.4 10 ^3/uL (0-1.3); Monocytes % (auto) 8.3 % (0.0-12.0); Neutrophils # (auto) 2.5 10 ^3/uL (1.6-8.6); Neutrophils % (auto) 56.6 % (37.0-80.0); Nucleated Red Blood Cells % 0.1 %; Platelet Count (auto) 260 10^3/uL (140-450); Red Blood Cells 4.04 10^6/uL (4.0-5.20); White Blood Cell 4.4 10^3/uL (4.4-10.8)
[2020-05-26 17:49] LABS: BUN/Creatinine Ratio 16.9; Calcium 9.1 mg/dL (8.5-10.1); Potassium 4.2 mmol/L (3.5-5.1)
[2020-05-26 17:56] LABS: INR 1.04 (0.9-1.15); Partial Thromboplastin Time 32.2 sec (23.0-31.2)
--- NOTE | 2020-05-26 19:50 | NUR ---
Opening Shift Note Assumed care of patient. Awake, alert and oriented x4. No S/S of distress/SOB or pain at this time. Instructed on POC and to call for assist PRN. Bed locked, in lowest position, call light within reach, side rails up x2. Will continue to monitor for changes Q1hr and PRN.
--- NOTE | 2020-05-26 20:40 | NUR ---
Pt reporting chest pain Chest pain 02/25. EKG done shows NSR, no change from previous. BP 133/84, P 58. Pt given [place], refused Nitro and has allergy to morphine. After EKG done pt was stating that "the pain isn't really that bad and I'm not sure if it's in my chest". Will continue to monitor
[2020-05-26 22:00] VITALS: BP 133/84
[2020-05-26] MEDS: ATORVASTATIN 20 MG TAB PO SCH (22:23)
[2020-05-27] MEDS: SODIUM CHLORIDE 0.9% 1,000 ML IV SCH ×2 (03:17→15:10)
[2020-05-27] MEDS: HYDROcodone-ACET 7.5/325MG TAB PO PRN ×3 (03:23→16:43)
[2020-05-27 05:00] VITALS: BP 113/74
[2020-05-27] MEDS: LEVOTHYROXINE SODIUM 25 MCG TAB PO SCH (06:26)
--- NOTE | 2020-05-27 07:38 | NUR ---
Opening Shift Note Assumed care of patient from noc shift rn. Pt. Awake, A/O x4. No S/S of distress/SOB, reports 7/10 generalized body pain, will medicate per eMAR. Plan of care discussed, encouraged to call for assist PRN. Bed locked, in lowest position, call light within reach, side rails up x2. Will continue to monitor for changes Q1hr and PRN.
[2020-05-27 08:00] VITALS: BP 150/79
[2020-05-27] MEDS: CALCIUM CARB 500 MG CHEW TAB PO SCH ×3 (08:00→18:00)
[2020-05-27 09:00] VITALS: BP 150/79
[2020-05-27] MEDS: FAMOTIDINE 20 MG TAB PO SCH (09:46)
[2020-05-27] MEDS: ASPirin 81 mg TAB PO SCH (09:46)
[2020-05-27] MEDS: hydrALAZINE HCL 25 MG TAB PO PRN (09:48)
[2020-05-27] MEDS: ENOXAPARIN SOD 30 MG/0.3 ML SYRINGE SC SCH (09:48)
[2020-05-27] MEDS: CHOLECALCIFEROL (VITD3) 2,000 UNIT CAP PO SCH (09:48)
[2020-05-27] MEDS: METOPROLOL TARTRATE 25 MG TAB PO SCH (09:49)
[2020-05-27] MEDS: DOCUSATE SOD 100 MG CAP PO SCH (09:50)
--- NOTE | 2020-05-27 12:00 | NUR ---
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
[2020-05-27] MEDS ORDERED: MIDAZOLAM HCL 1MG/1ML-2 ML VIAL ONE (13:48)
[2020-05-27] MEDS ORDERED: ANGIOMAX 250 MG VIAL IV ONE (13:48)
[2020-05-27] MEDS ORDERED: fentaNYL CITRATE 100 MCG/2 ML VL ONE (13:48)
[2020-05-27] MEDS ORDERED: LIDOCAINE 2%HCL (LOCAL ANESTH.) INJ 20ML MDV ONE (13:49)
[2020-05-27] MEDS ORDERED: SODIUM CHL 0.9% 0 ML ONE (13:49)
[2020-05-27] MEDS ORDERED: IOHEXOL 350 MG/ML 100ML IJ ONE (14:00)
--- NOTE | 2020-05-27 15:45 | NUR ---
PATIENT BACK S/P LEFT HEART CATH PROCEDURE. NO INTERVENTION DONE. GROIN ACCESS SITE IS INTACT, NO BLEEDING NOTED. WILL CONTINUE TO MONITOR Q1HR AND PRN. REMINDED PATIENT TO REMAIN LAYING FLAT UNTIL 1630.
[2020-05-27 17:00] VITALS: BP 109/66
[2020-05-27] MEDS ORDERED: methylPREDNISolone SOD SUCC 125 MG/2 ML VL ONE (17:06)
[2020-05-27 18:36] VITALS: BP 109/60
--- NOTE | 2020-05-27 18:58 | NUR ---
ENDORSED DISCHARGE TO NOC SHIFT RN, POM AT BEDSIDE.
[2020-05-27 19:08] VITALS: BP 150/79
--- NOTE | 2020-05-27 19:58 | NUR ---
Pt discharged home All questions answered. Pt verbalized understanding. Paperwork for FU and pt discharge information given to pt. Tele box, IV, ID bands removed.
== END 2020-05-27 19:57 | disposition home or self-care (01) | DRG 192 ==
LOC: ER 13:51 → TELE 13:52 → TELE-CENTR 21:40
PROVIDERS: ADMIT Hospitalist; ATTEND Internal Medicine
PROC: 4A023N7 Measurement of Cardiac Sampling and Pressure, Left Heart, Percutaneous Approach (ICD-10-PCS; principal; 2020-05-27)
PROC: B211YZZ Fluoroscopy of Multiple Coronary Arteries using Other Contrast (ICD-10-PCS; 2020-05-27)
PROC: B215YZZ Fluoroscopy of Left Heart using Other Contrast (ICD-10-PCS; 2020-05-27)
DX: R07.9 Chest pain, unspecified (principal); E66.01 Morbid (severe) obesity due to excess calories; F17.210 Nicotine dependence, cigarettes, uncomplicated; E05.00 Thyrotoxicosis with diffuse goiter without thyrotoxic crisis or storm; K21.9 Gastro-esophageal reflux disease without esophagitis; E78.5 Hyperlipidemia, unspecified; R00.1 Bradycardia, unspecified; F41.9 Anxiety disorder, unspecified; I11.0 Hypertensive heart disease with heart failure; K29.70 Gastritis, unspecified, without bleeding; I50.30 Unspecified diastolic (congestive) heart failure; F03.90 Unspecified dementia, unspecified severity, without behavioral disturbance, psychotic disturbance, mood disturbance, and anxiety; Z88.5 Allergy status to narcotic agent; Z82.49 Family history of ischemic heart disease and other diseases of the circulatory system; Z82.3 Family history of stroke; Z79.899 Other long term (current) drug therapy; Z68.31 Body mass index [BMI] 31.0-31.9, adult; I25.10 Atherosclerotic heart disease of native coronary artery without angina pectoris
CPT/HCPCS: 36415; 71046; 78452; 80048; 80053; 83036; 84443; 84484; 85025; 85610; 85730; 93005; 93017; 93306; 93458; 96360; 99152; G0378; J0153; J2250

== ENCOUNTER 2022-01-15 10:06 | Emergency (ER) | payer OTHER, MEDICAID ==
[~2022-01-15] VITALS: Ht 175.3 cm; Wt 95.7 kg
[~2022-01-15 10:06] MED LIST changes: +ACET-1304 PO; +BACL10TA PO; +CHOL20009 PO; +DIPH25TA35 PO; +HYDR-392 PO; +LEVO75TA6 PO; +METH10TA6 PO; -PANT40TA2 PO; +PROM25TA5 PO
[2022-01-15 10:15] VITALS: BP 156/88
[2022-01-15 12:57] LABS: Basophils # (auto) 0.1 10 ^3/uL (0-0.2); Basophils % (auto) 0.8 % (0.0-2.0); Eosinophils # (auto) 0.1 10 ^3/uL (0-0.8); Eosinophils % (auto) 2.3 % (0.0-7.0); Hematocrit 41.1 % (36.0-46.0); Hemoglobin 13.6 g/dL (12.2-16.2); Lymphocytes # (auto) 1.4 10 ^3/uL (0.4-5.4); Lymphocytes % (auto) 23.1 % (10.0-50.0); Mean Corpuscular Hgb Conc. 33.2 g/dL (32.0-36.0); Mean Corpuscular Volume 93.3 fL (80.0-100.0); Monocytes # (auto) 0.6 10 ^3/uL (0-1.3); Monocytes % (auto) 9.9 % (0.0-12.0); Neutrophils % (auto) 63.9 % (37.0-80.0); Red Cell Distribution Width 13.4 % (11.8-14.3); White Blood Cell 6.2 10^3/uL (4.4-10.8)
[2022-01-15 13:18] LABS: Albumin 3.8 g/dL (3.4-5.0); Calcium 8.9 mg/dL (8.5-10.1); Potassium 4.4 mmol/L (3.5-5.1)
[2022-01-15 13:23] LABS: BUN/Creatinine Ratio 27.3; Bilirubin, Total 0.4 mg/dL (0.2-1.0)
[2022-01-15 13:49] LABS: Urine Bacteria NONE SEEN /hpf (None Seen); Urine Blood 3+ /uL (Negative); Urine Budding Yeast MANY /hpf (None Seen); Urine Specific Gravity 1.016 (1.001-1.035); Urine WBC 373 /hpf (0 - 5); Urine WBC Clumps PRESENT /hpf (None Seen)
[2022-01-15] MEDS ORDERED: NITR-87 PO (14:14)
[2022-01-15] MEDS ORDERED: cloNIDine HCL 0.1 MG TAB PO ONE (14:15)
[2022-01-15] MEDS ORDERED: cefTRIAXone W LIDOCAINE 1 GM IM IM ONE (14:15)
[2022-01-15] MEDS ORDERED: LIDOCAINE 1% (LOCAL ANESTH.) PF 5ml SDV ONE (14:42)
[2022-01-15] MEDS ORDERED: cefTRIAXone SOD 1,000 MG VL ONE ×2 (14:42)
[2022-01-15] MEDS ORDERED: ONDANSETRON ODT 4 MG TAB PO ONE (14:45)
== END 2022-01-15 15:35 | disposition home or self-care (01) ==
LOC: ER 10:06
DX: N39.0 Urinary tract infection, site not specified (principal); I10 Essential (primary) hypertension; I11.0 Hypertensive heart disease with heart failure; I50.9 Heart failure, unspecified; E03.9 Hypothyroidism, unspecified; E78.5 Hyperlipidemia, unspecified; K21.9 Gastro-esophageal reflux disease without esophagitis; F17.210 Nicotine dependence, cigarettes, uncomplicated; Z79.899 Other long term (current) drug therapy; Z88.5 Allergy status to narcotic agent
CPT/HCPCS: 36415; 80053; 81001; 85025; 96372; 99283; J0696; Q0162

== ENCOUNTER 2023-03-06 10:42 | Emergency (ER) | payer OTHER, MEDICAID ==
[~2023-03-06] VITALS: Ht 170.2 cm; Wt 50.0 kg
[~2023-03-06 10:42] MED LIST changes: +METH-552 PO; -METH10TA6 PO; +NITR-87 PO; +PROM25TA10 PO; -PROM25TA5 PO
[2023-03-06] MEDS ORDERED: SODIUM CHLORIDE 0.9% 1,000 ML IV ONE (11:30)
[2023-03-06 11:44] LABS: Basophils # (auto) 0 10 ^3/uL (0-0.2); Basophils % (auto) 0.2 % (0.0-2.0); Eosinophils # (auto) 0.1 10 ^3/uL (0-0.8); Eosinophils % (auto) 2.4 % (0.0-7.0); Hematocrit 39.9 % (36.0-46.0); Hemoglobin 13.1 g/dL (12.2-16.2); Lymphocytes # (auto) 0.4 10 ^3/uL (0.4-5.4); Lymphocytes % (auto) 9.6 % (10.0-50.0); Mean Corpuscular Volume 94.2 fL (80.0-100.0); Monocytes # (auto) 0.5 10 ^3/uL (0-1.3); Monocytes % (auto) 11.3 % (0.0-12.0); Neutrophils # (auto) 3.4 10 ^3/uL (1.6-8.6); Neutrophils % (auto) 76.5 % (37.0-80.0); Red Blood Cells 4.23 10^6/uL (4.0-5.20); Red Cell Distribution Width 12.9 % (11.8-14.3); White Blood Cell 4.5 10^3/uL (4.4-10.8)
[2023-03-06 11:58] LABS: Albumin 3.8 g/dL (3.4-5.0); Potassium 3.8 mmol/L (3.5-5.1)
[2023-03-06 12:01] LABS: BUN/Creatinine Ratio 21.6 (10.0-20.0); Bilirubin, Total 0.3 mg/dL (0.2-1.0); Total Protein 7.2 g/dL (6.4-8.2)
[2023-03-06] MEDS ORDERED: HYDROcodone-ACET 5/325MG TAB PO ONE (14:00)
[2023-03-06 14:11] VITALS: BP 118/67; PULSE 76; RESP 16; TEMP 99.2; O2SAT 99
[2023-03-06] MEDS ORDERED: DexAMETHasone SOD PHOS 10MG/1ML VIAL INJ IV ONE (14:45)
[2023-03-06] MEDS ORDERED: DEX4T PO (15:01)
== END 2023-03-06 14:59 | disposition home or self-care (01) ==
LOC: EDBD 10:42 → ER 10:42
DX: U07.1 COVID-19 (principal); I10 Essential (primary) hypertension; Z98.890 Other specified postprocedural states
CPT/HCPCS: 36415; 70450; 71045; 80053; 83605; 84484; 85025; 86308; 87040; 87070; 87426; 87804; 87880; 93005; 96361; 96374; 99285; J1100; J7030

== ENCOUNTER 2023-03-23 02:20 | Emergency (ER) | payer OTHER, MEDICAID ==
[~2023-03-23] VITALS: Ht 170.2 cm; Wt 95.5 kg
[~2023-03-23 02:20] MED LIST changes: +DEX4T PO
[2023-03-23 05:27] VITALS: BP 112/93; PULSE 65; RESP 19; TEMP 97.6; O2SAT 98
[2023-03-23] MEDS ORDERED: KETOROLAC TROMETH 60MG/2ML VIAL IM ONE (07:15)
== END 2023-03-23 07:47 | disposition home or self-care (01) ==
LOC: ER 02:20 → EDBD 02:20 → ER 07:45
DX: G44.209 Tension-type headache, unspecified, not intractable (principal); F41.1 Generalized anxiety disorder; F41.9 Anxiety disorder, unspecified; K21.9 Gastro-esophageal reflux disease without esophagitis; E78.5 Hyperlipidemia, unspecified; F17.210 Nicotine dependence, cigarettes, uncomplicated; I10 Essential (primary) hypertension; Z88.5 Allergy status to narcotic agent; Z79.899 Other long term (current) drug therapy; Z90.710 Acquired absence of both cervix and uterus; Z98.890 Other specified postprocedural states
CPT/HCPCS: 70450; 93005; 96372; 99285; J1885

== ENCOUNTER 2023-07-29 07:43 | Emergency (ER) | payer OTHER, MEDICAID ==
[~2023-07-29] VITALS: Ht 170.2 cm; Wt 80.0 kg
[2023-07-29 08:34] LABS: Basophils # (auto) 0 10 ^3/uL (0-0.2); Basophils % (auto) 0.3 % (0.0-2.0); Eosinophils # (auto) 0.2 10 ^3/uL (0-0.8); Eosinophils % (auto) 3.2 % (0.0-7.0); Hematocrit 39.5 % (36.0-46.0); Hemoglobin 13.1 g/dL (12.2-16.2); Lymphocytes # (auto) 2.1 10 ^3/uL (0.4-5.4); Lymphocytes % (auto) 40.3 % (10.0-50.0); Mean Corpuscular Hemoglobin 30.5 pg (28.0-32.0); Mean Corpuscular Hgb Conc. 33.2 g/dL (32.0-36.0); Mean Corpuscular Volume 91.7 fL (80.0-100.0); Monocytes # (auto) 0.5 10 ^3/uL (0-1.3); Monocytes % (auto) 9.8 % (0.0-12.0); Neutrophils # (auto) 2.4 10 ^3/uL (1.6-8.6); Neutrophils % (auto) 46.4 % (37.0-80.0); Red Cell Distribution Width 13.2 % (11.8-14.3); White Blood Cell 5.2 10^3/uL (4.4-10.8)
[2023-07-29 08:58] LABS: Alanine Aminotransferase 28 U/L (7-40); Albumin 4.3 g/dL (3.2-4.8); Alkaline Phosphatase 100 U/L (46-116); Anion Gap 7 (5-15); Aspartate Aminotransferase 14 U/L (13-40); BUN/Creatinine Ratio 20.4 (10.0-20.0); Bilirubin, Total 0.5 mg/dL (0.2-1.0); Blood Urea Nitrogen 11 mg/dL (9-23); Calcium 9.7 mg/dL (8.5-10.1); Carbon Dioxide 28 mmol/L (20-30); Chloride 108 mmol/L (98-107); Glucose 92 mg/dL (74-106); Potassium 3.8 mmol/L (3.5-5.1); Sodium 143 mmol/L (136-145)
[2023-07-29 08:59] LABS: Total Protein 6.3 g/dL (5.7-8.2)
[2023-07-29 09:05] LABS: Prothrombin Time 10.9 sec (9.3-11.8)
[2023-07-29 09:06] LABS: INR 1.04 (0.9-1.15); Partial Thromboplastin Time 31.6 SEC (24.5-34.5)
[2023-07-29] MEDS ORDERED: cloNIDine HCL 0.1 MG TAB ONE (11:15)
[2023-07-29] MEDS ORDERED: cloNIDine HCL 0.1 MG TAB PO ONE (11:15)
[2023-07-29] MEDS ORDERED: hydrALAZINE HCL 20 MG/ML VL ONE (11:41)
[2023-07-29] MEDS ORDERED: LISI20TA56 PO ×3 (12:01→12:29)
[2023-07-29 12:17] VITALS: BP 140/86; PULSE 65; RESP 18; TEMP 98; O2SAT 97
[2023-07-29] MEDS ORDERED: IBUPROFEN 400 MG TAB PO ONE (12:30)
== END 2023-07-29 12:30 | disposition home or self-care (01) ==
LOC: EDBD 07:43 → ER 07:43
DX: I16.0 Hypertensive urgency (principal); I10 Essential (primary) hypertension; G44.209 Tension-type headache, unspecified, not intractable
CPT/HCPCS: 36415; 70450; 71045; 80053; 84443; 84484; 85025; 85610; 85730; 93005; 99285; J0360

== ENCOUNTER 2024-11-06 13:06 | Emergency (ER) | payer OTHER, MEDICAID ==
[~2024-11-06] VITALS: Ht 167.6 cm; Wt 70.0 kg
[~2024-11-06 13:06] MED LIST changes: +LISI20TA56 PO
--- NOTE | 2024-11-06 13:19 | ED.PDOC ---
History of Present Illness HPI Comments 58Y F with PMHx vertigo presents to ED via EMS for chief complaint vertigo. Pt states she feels like the room is spinning. Last episode of vertigo was a couple of years ago. Per pt, she has been experiencing lack of sleep recently but is unsure if that exacerbated the vertigo. Pt feels better when laying down. No other symptoms reported. Time Seen by MD: 13:10 Primary Care Provider: ROSARIO Reviewed Notes: Nurses Notes, Skin Installer Notes, Medications, Allergies Allergies: Coded Allergies: Codeine (Verified Allergy, Unknown, 05/04/16) Morphine (Verified Allergy, Unknown, ITCHING & SWELLING AT INJECTION SITE, 05/04/16) Home Meds Active Scripts Lisinopril (Lisinopril) 20 Mg Tab, 1 TAB PO DAILY, #30 TAB 5 Refills Prov:BINDU MACDONALD MD 07/29/23 Dexamethasone (Decadron) 4 Mg Tb, 6 MG PO DAILY for 10 Days, #15 TAB Prov:DONNELL NEIL DO 03/06/23 Nitrofurantoin Monohydrate Mac (Macrobid) 100 Mg Cap, 100 MG PO BID for 10 Days, #20 CAP Prov:MATILDA DELGADILLO MD 01/15/22 Reported Medications Diphenhydramine Hcl (Diphenhydramine Hcl) 25 Mg Tab, 25 MG PO PRN, TAB 05/24/20 Acetaminophen (Tylenol Extra Strength) 500 Mg Tab, 500 MG PO PRN, TAB 05/24/20 Cholecalciferol (VITAMIN D) Unknown Strength Tab, PO DAILY, TAB 05/24/20 Baclofen (Baclofen) 10 Mg Tab, 10 MG PO BIDP, TAB 05/24/20 Promethazine Hcl (Promethazine Hcl) 25 Mg Tab, 25 MG PO DAILYP 05/24/20 Levothyroxine Sodium (Levothyroxine Sodium) 75 Mcg Tab, 1 TAB PO QAM, #30 TAB 5 Refills 05/24/20 Hydrocodone-Acetaminophen ([place] 7.5-325 mg) 1 Tab Tab, 1 TAB PO TID, TAB 05/24/20 Methimazole (Methimazole) 10 Mg Tab, 2 TAB PO BID, TAB 05/24/20 Metoprolol Tartrate (LOPRESSOR TABLET) 50 Mg Tb, 50 MG PO DAILY 06/24/17 Information Source: Patient, Emergency Med Personnel Mode of Arrival: EMS Severity: Mild Timing: Days Duration: Minutes Prehospital treatment: None Past Medical History PAST MEDICAL HISTORY: Anxiety, CHF, GERD, High Lipids, HTN, Thyroid Past Medical History (Other): vertigo Surgical History: , Hysterectomy 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 ELECTRICAL FITTER History Family History Family History: Reviewed,noncontributory to illness, Family hx of HTN, Family hx of liver gadiel Social History Smoker: Cigarettes, Less Than 1 Pack/Day Alcohol: Rarely Drugs: Denies Drug Use Lives In: Home Constitutional: denies: chills, diaphoresis, fatigue, fever, malaise, sweats, weakness, others EENTM: denies: blurred vision, double vision, ear bleeding, ear discharge, ear drainage, ear pain, ear ringing, eye pain, eye redness, hearing loss, mouth pain, mouth swelling, nasal discharge, nose bleeding, nose congestion, nose pain, photophobia, tearing, throat pain, throat swelling, voice changes, others Respiratory: denies: cough, hemoptysis, orthopnea, SOB at rest, shortness of breath, SOB with excertion, stridor, wheezing, others Cardiovascular: denies: chest pain, dizzy spells, diaphoresis, Dyspnea on exertion, edema, irregular heart beat, left arm pain, lightheadedness, palpitations, PND, syncope, others Gastrointestinal: denies: abdomen distended, abdominal pain, blood streaked bowels, constipated, diarrhea, dysphagia, difficulty swallowing, hematemesis, melena, nausea, poor appetite, poor fluid intake, rectal bleeding, rectal pain, vomiting, others Genitourinary: denies: abnormal vagina bleeding, burning, dyspareunia, dysuria, flank pain, frequency, hematuria, incontinence, pain, , vagina discharge, urgency, others Neurological: reports: dizziness; denies: fainting, headache, left sided numbness, left sided weakness, numbness, paresthesia, pre-existing deficit, right sided numbness, right sided weakness, seizure, speech problems, tingling, tremors, weakness, others Musculoskeletal: denies: back pain, gout, joint pain, joint swelling, muscle pain, muscle stiffness, neck pain, others Integumetry: denies: bruises, change in color, change in hair/nails, dryness, laceration, lesions, lumps, rash, wounds, others Allergic/Immunocompromised: denies: Difficulty Healing, Frequent Infections, Hives, Itching, others Hematologic/Lymphatic: denies: anemia, blood clots, easy bleeding, easy bruising, swollen glands, others Endocrine: denies: excessive hunger, excessive sweating, excessive thirst, excessive urination, flushing, intolerance to cold, intolerance to heat, unexplained weight gain, unexplained weight loss, others Psychiatric: reports: sleepless; denies: anxiety, bipolar disorder, depression, hopeless, panic disorder, schizophrenia, suicidal, others All Other Systems: Reviewed and Negative Physical Exam General Appearance: No Apparent Distress, Normal HEENT: Pharynx Normal, TMs Normal, Other (headache when looking upwards, no nystagmus, no reproduction of vertigo) Neck: Full Range of Motion, Non-Tender, Normal, Normal Inspection Respiratory: Chest Non-Tender, Lungs Clear, No Accessory Muscle Use, No Respiratory Distress, Normal Breath Sounds Cardiovascular: No Edema, No JVD, No Murmur, No Gallop, Normal Peripheral Pulses, Regular Rate/Rhythm Breast Exam: Deferred Gastrointestinal: No Organomegaly, Non Tender, No Pulsatile Mass, Normal Bowel Sounds, Soft Genitalia: Deferred Pelvic: Deferred Rectal: Deferred Extremities: No calf tenderness, Normal capillary refill, Normal inspection, Normal range of motion, Non-tender, No pedal edema Musculoskeletal : Apperance: Normal Neurologic: Alert, appeals specialist II-XII nml as Tested, No Motor Deficits, Normal Affect, Normal Mood, No Sensory Deficits Cerebellar Function: Normal Reflexes: Normal Skin: Dry, Normal Color, Warm Lymphatic: No Adenopathy Was a procedure done? Was a procedure done?: No Differential Dx Considerations may include: vertigo X-Ray, Labs, Meds, VS Vital Signs Date Time Temp Pulse Resp B/P (MAP) Pulse Ox O2 Delivery O2 Flow Rate FiO2 11/06/24 14:02 63 11/06/24 13:43 98.4 58 18 143/93 (110) 100 98.4 11/06/24 13:43 58 18 100 Room Air* 0 21 11/06/24 13:15 97.9 64 18 140/92 (108) 95 97.9 Lab Test 11/06/24 13:48 Range/Units White Blood Count 5.0 4.4-10.8 10^3/uL Red Blood Count 4.59 4.0-5.20 10^6/uL Hemoglobin 13.7 12.2-16.2 g/dL Hematocrit 42.7 36.0-46.0 % Mean Corpuscular Volume 92.9 80.0-100.0 fL Mean Corpuscular Hemoglobin 29.9 28.0-32.0 pg Mean Corpuscular Hemoglobin Concent 32.2 32.0-36.0 g/dL Red Cell Distribution Width 13.4 11.8-14.3 % Platelet Count 276 140-450 10^3/uL Mean Platelet Volume 7.0 6.9-10.8 fL Neutrophils (%) (Auto) 52.0 37.0-80.0 % Lymphocytes (%) (Auto) 34.9 10.0-50.0 % Monocytes (%) (Auto) 8.8 0.0-12.0 % Eosinophils (%) (Auto) 4.0 0.0-7.0 % Basophils (%) (Auto) 0.3 0.0-2.0 % Neutrophils # (Auto) 2.6 1.6-8.6 10 ^3/uL Lymphocytes # (Auto) 1.7 0.4-5.4 10 ^3/uL Monocytes # (Auto) 0.4 0-1.3 10 ^3/uL Eosinophils # (Auto) 0.2 0-0.8 10 ^3/uL Basophils # (Auto) 0 0-0.2 10 ^3/uL Nucleated Red Blood Cells 0.1 % Sodium Level 144 136-145 mmol/L Potassium Level 4.5 3.5-5.1 mmol/L Chloride Level 112 H 98-107 mmol/L Carbon Dioxide Level 28 20-31 mmol/L Anion Gap 4 L 5-15 Blood Urea Nitrogen 10 9-23 mg/dL Creatinine 0.65 0.550-1.02 mg/dL Glomerular Filtration Rate Calc 101 >90 mL/min BUN/Creatinine Ratio 15.4 10.0-20.0 Serum Glucose 92 74-106 mg/dL Calcium Level 9.7 8.7-10.4 mg/dL Current Medications Medications (Trade) Dose Ordered Sig/Deuce Route Start Time Stop Time Status Last Admin Meclizine HCl (Antivert Tablet) 25 mg ONCE ONCE PO 11/06/24 13:15 11/06/24 13:16 DC 11/06/24 13:41 Alprazolam (Xanax Tablet) 0.25 mg ONCE ONCE PO 11/06/24 13:15 11/06/24 13:16 DC 11/06/24 13:42 Ondansetron HCl (Zofran Po) 4 mg ONCE ONCE PO 11/06/24 13:15 11/06/24 13:16 DC 11/06/24 13:41 Time of 1ST Reevaluation: 13:40 Reevaluation 1ST: Unchanged Patient Education/Counseling: Diagnosis, Treatment, Prognosis, Need For Follow Up Family Education/Counseling: No Family Present Additional Information Previous visit documents reviewed: [facility] ER 07/29/2023, 03/23/2023, 03/06/2023, 01/15/2022; [facility] discharge 05/27/2020, 06/26/2017, 06/06/2017, 05/05/2016 The following tests were ordered, and results were reviewed by me: EKG x2, CBC, BMP, head CT WO contrast Additional Information was gathered from interviewing the following independent historians: EMS I reviewed and agreed with the following test results read by other providers: head CT WO contrast I discussed treatment and results with medical personnel and: Patient although the workup is unremarkable, pt remains symptomatic and has unsteadiness on ambulation. she is also mildly bradycardic. pt will be admitted for further workups Departure 1 Departure Time of Disposition: 14:31 Impression: Primary Impression: Vertigo Additional Impressions: Unsteadiness Symptomatic bradycardia Disposition: ADMITTED INPATIENT Admit to: Tele Condition: Stable Critical Care Note Critical Care Time?: Yes (55 min-critical care time only) Critical care comment: Due to concerns for patients condition deteriorating, the care required my highest level of attention and readiness to intervene. I assessed the patient, reviewed the medical records, ordered the appropriate tests and treatments, then reassessed for results and responsiveness. I communicated with medical personnel and consultants and formulated a plan of care. Total critical care time excludes any procedures Stability Stability form required: No Heart Score Heart Score: Heart Score Response (Comments) Value History N/A 0 EKG N/A 0 Age N/A 0 Risk Factors N/A 0 Troponin N/A 0 Total 0 I personally scribed for CHRISTIE RODRIGUES MD ([facility]) on 11/06/24 at 13:19. Electronically submitted by Namrata Arambula ([facility]). I personally scribed for CHRISTIE RODRIGUES MD ([facility]) on 11/06/24 at 13:24. Electronically submitted by Namrata Arambula ([facility]). CHRISTIE RODRIGUES MD Nov 06, 2024 13:19
[2024-11-06] MEDS: ONDANSETRON ODT 4 MG TAB PO ONE (13:41)
[2024-11-06] MEDS: MECLIZINE HCL 25 MG TAB PO ONE (13:41)
[2024-11-06] MEDS: ALPRAZolam 0.25 MG TAB PO ONE (13:42)
[2024-11-06 13:43] VITALS: PULSE 58; RESP 18; O2SAT 100
[2024-11-06 14:01] LABS: Basophils # (auto) 0 10 ^3/uL (0-0.2); Basophils % (auto) 0.3 % (0.0-2.0); Eosinophils # (auto) 0.2 10 ^3/uL (0-0.8); Hematocrit 42.7 % (36.0-46.0); Hemoglobin 13.7 g/dL (12.2-16.2); Lymphocytes # (auto) 1.7 10 ^3/uL (0.4-5.4); Lymphocytes % (auto) 34.9 % (10.0-50.0); Mean Corpuscular Hemoglobin 29.9 pg (28.0-32.0); Mean Corpuscular Hgb Conc. 32.2 g/dL (32.0-36.0); Mean Corpuscular Volume 92.9 fL (80.0-100.0); Monocytes # (auto) 0.4 10 ^3/uL (0-1.3); Monocytes % (auto) 8.8 % (0.0-12.0); Neutrophils # (auto) 2.6 10 ^3/uL (1.6-8.6); Nucleated Red Blood Cells % 0.1 %; Platelet Count (auto) 276 10^3/uL (140-450); Red Blood Cells 4.59 10^6/uL (4.0-5.20); Red Cell Distribution Width 13.4 % (11.8-14.3)
[2024-11-06 14:11] LABS: Anion Gap 4 (5-15); Carbon Dioxide 28 mmol/L (20-31); Potassium 4.5 mmol/L (3.5-5.1); Sodium 144 mmol/L (136-145)
[2024-11-06 14:12] LABS: Calcium 9.7 mg/dL (8.7-10.4)
[2024-11-06 14:14] LABS: Chloride 112 mmol/L (98-107)
[2024-11-06 14:17] LABS: BUN/Creatinine Ratio 15.4 (10.0-20.0); Blood Urea Nitrogen 10 mg/dL (9-23); Glucose 92 mg/dL (74-106)
--- NOTE | 2024-11-06 14:21 | DVH ---
CLINICAL INFORMATION: 58 years old, Female; vertigo, headache. TECHNIQUE: Axial imaging was obtained through the brain without contrast. Coronal and sagittal reform atted images were obtained, reviewed, and stored. Images were reviewed in brain and bone windows. Al l CT scans at this medical facility are performed using dose modulation techniques as appropriate to a performed exam including the following: Automated exposure control was utilized; adjustment of the MA and/or KV according to patient size; and use of iterative reconstruction technique. CTDIvol = 59.3 mGy DLP = 1048.66 mGy-cm COMPARISON: CT HEAD WITHOUT CONTRAST on DOS: 07/29/23, CT HEAD WITHOUT CONTRAST on DOS: 03/23/23, CT HE AD WITHOUT CONTRAST on DOS: 03/06/23 FINDINGS: There is no acute intracranial hemorrhage. No mass effect or midline shift. Similar-appeari ng small calcifications along the falx cerebri bilateral basal ganglia calcifications. The ventricles and sulci are within normal limits in size for age. Basal cisterns are patent. The calvarium is unr emarkable. Paranasal sinuses and mastoid air cells are clear. IMPRESSION: No CT evidence of acute intracranial abnormality.
[2024-11-06 15:55] VITALS: BP 116/78; PULSE 60; RESP 18; TEMP 98.3; O2SAT 100
--- NOTE | 2024-11-09 13:13 | ECG ---
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
== END 2024-11-06 18:19 | disposition left against medical advice (07) ==
LOC: EDBD 13:06 → ER 13:06
DX: R42 Dizziness and giddiness (principal); R00.1 Bradycardia, unspecified; R26.81 Unsteadiness on feet; F41.9 Anxiety disorder, unspecified; I11.0 Hypertensive heart disease with heart failure; I50.9 Heart failure, unspecified; F17.210 Nicotine dependence, cigarettes, uncomplicated; Z79.52 Long term (current) use of systemic steroids; Z79.899 Other long term (current) drug therapy; Z90.710 Acquired absence of both cervix and uterus; Z88.5 Allergy status to narcotic agent; Z79.891 Long term (current) use of opiate analgesic
CPT/HCPCS: 36415; 70450; 80048; 82947; 85025; 99291; J8597; Q0162; 93005

== ENCOUNTER 2025-07-23 05:57 | Emergency (ER) | payer OTHER, MEDICAID ==
[~2025-07-23] VITALS: Ht 175.3 cm; Wt 92.0 kg
[2025-07-23 06:19] VITALS: TEMP 99.7
[2025-07-23 06:20] VITALS: PULSE 76; RESP 15; O2SAT 98
--- NOTE | 2025-07-23 07:26 | ED.PDOC ---
History of Present Illness HPI Comments A 59 YEAR OLD FEMALE BROUGHT IN BY AMBULANCE PRESENTS TO THE ED WITH COMPLAINT OF HEADACHE, MOUTH PAIN AND BODY ACHES. PATIENT STATES SHE HAS BEEN EXPERIENCING A HEADACHE, BODY ACHES, AND MOUTH PAIN THAT STARTED YESTERDAY. PATIENT DENIES VISION CHANGES, SLURRED SPEECH, ONE-SIDED WEAKNESS, FACIAL DROOP, FEVER, CHILLS, SHORTNESS OF BREATH, CHEST PAIN, ABDOMINAL PAIN, NAUSEA, VOMITING, OR OTHER COMPLAINTS. NO OTHER SYMPTOMS OR MODIFYING FACTORS AT THIS TIME. PATIENT IS ALERT, ORIENTED X 4, AND HAS STEADY GAIT. Chief Complaint: Flu like Time Seen by MD: 06:28 Primary Care Provider: unknown Reviewed Notes: Nurses Notes, Medications, Allergies Allergies: Coded Allergies: Codeine (Verified Allergy, Unknown, 05/04/16) Morphine (Verified Allergy, Unknown, ITCHING & SWELLING AT INJECTION SITE, 05/04/16) Home Meds Active Scripts Ibuprofen (Ibuprofen) 800 Mg Tab, 1 TAB PO QID, #30 TAB Prov:CHINA ALDANA 07/23/25 Azithromycin (Azithromycin) 500 Mg Tab, 1 TAB PO DAILY, #5 TAB Prov:CHINA ALDANA 07/23/25 Lisinopril (Lisinopril) 20 Mg Tab, 1 TAB PO DAILY, #30 TAB 5 Refills Prov:BINDU MACDONALD MD 07/29/23 Dexamethasone (Decadron) 4 Mg Tb, 6 MG PO DAILY for 10 Days, #15 TAB Prov:DONNELL NEIL DO 03/06/23 Nitrofurantoin Monohydrate Mac (Macrobid) 100 Mg Cap, 100 MG PO BID for 10 Days, #20 CAP Prov:MATILDA DELGADILLO MD 01/15/22 Reported Medications Diphenhydramine Hcl (Diphenhydramine Hcl) 25 Mg Tab, 25 MG PO PRN, TAB 05/24/20 Acetaminophen (Tylenol Extra Strength) 500 Mg Tab, 500 MG PO PRN, TAB 05/24/20 Cholecalciferol (VITAMIN D) Unknown Strength Tab, PO DAILY, TAB 05/24/20 Baclofen (Baclofen) 10 Mg Tab, 10 MG PO BIDP, TAB 05/24/20 Promethazine Hcl (Promethazine Hcl) 25 Mg Tab, 25 MG PO DAILYP 05/24/20 Levothyroxine Sodium (Levothyroxine Sodium) 75 Mcg Tab, 1 TAB PO QAM, #30 TAB 5 Refills 05/24/20 Hydrocodone-Acetaminophen ([place] 7.5-325 mg) 1 Tab Tab, 1 TAB PO TID, TAB 05/24/20 Methimazole (Methimazole) 10 Mg Tab, 2 TAB PO BID, TAB 05/24/20 Metoprolol Tartrate (LOPRESSOR TABLET) 50 Mg Tb, 50 MG PO DAILY 06/24/17 Information Source: Patient, Emergency Med Personnel Mode of Arrival: EMS Severity: Moderate Timing: Days Duration: Since onset, Days Prehospital treatment: None Medication Refill: For: Other (HEADACHE AND BODY ACHES) Past Medical History PAST MEDICAL HISTORY: Anxiety, CHF, GERD, High Lipids, HTN, Thyroid Past Medical History (Other): CHRONIC LOWER BACK PAIN Surgical History: , Hysterectomy [employer] History: No Pertinent [employer] History Family History Family History: Reviewed,noncontributory to illness, Family hx of HTN, Family hx of liver gadiel Social History Smoker: Cigarettes, Less Than 1 Pack/Day Alcohol: Rarely Drugs: Denies Drug Use Lives In: Home Constitutional: denies: chills, diaphoresis, fatigue, fever, malaise, sweats, weakness, others EENTM: reports: mouth pain, throat pain, throat swelling; denies: blurred vision, double vision, ear bleeding, ear discharge, ear drainage, ear pain, ear ringing, eye pain, eye redness, hearing loss, mouth swelling, nasal discharge, nose bleeding, nose congestion, nose pain, photophobia, tearing, voice changes, others Respiratory: denies: cough, hemoptysis, orthopnea, SOB at rest, shortness of breath, SOB with excertion, stridor, wheezing, others Cardiovascular: denies: chest pain, dizzy spells, diaphoresis, Dyspnea on exertion, edema, irregular heart beat, left arm pain, lightheadedness, palpitations, PND, syncope, others Gastrointestinal: denies: abdomen distended, abdominal pain, blood streaked bowels, constipated, diarrhea, dysphagia, difficulty swallowing, hematemesis, melena, nausea, poor appetite, poor fluid intake, rectal bleeding, rectal pain, vomiting, others Genitourinary: denies: abnormal vagina bleeding, burning, dyspareunia, dysuria, flank pain, frequency, hematuria, incontinence, pain, , vagina discharge, urgency, others Neurological: reports: headache; denies: dizziness, fainting, left sided numbness, left sided weakness, numbness, paresthesia, pre-existing deficit, right sided numbness, right sided weakness, seizure, speech problems, tingling, tremors, weakness, others Musculoskeletal: reports: muscle pain; denies: back pain, gout, joint pain, joint swelling, muscle stiffness, neck pain, others Integumetry: denies: bruises, change in color, change in hair/nails, dryness, laceration, lesions, lumps, rash, wounds, others Allergic/Immunocompromised: denies: Difficulty Healing, Frequent Infections, Hives, Itching, others Hematologic/Lymphatic: denies: anemia, blood clots, easy bleeding, easy bruising, swollen glands, others Endocrine: denies: excessive hunger, excessive sweating, excessive thirst, excessive urination, flushing, intolerance to cold, intolerance to heat, unexplained weight gain, unexplained weight loss, others Psychiatric: denies: anxiety, bipolar disorder, depression, hopeless, panic disorder, schizophrenia, sleepless, suicidal, others All Other Systems: Reviewed and Negative Physical Exam General Appearance: Mild Distress, Obese HEENT: PERRL/EOMI, Pharyngeal Erythema (TONSILLAR SWELLING, NO EXUDATES. MILD UVULAR SWELLING, NO EXUDATES. ), TMs Normal Neck: Full Range of Motion, Non-Tender, Normal, Normal Inspection Respiratory: Chest Non-Tender, Lungs Clear, No Accessory Muscle Use, No Respiratory Distress, Normal Breath Sounds Cardiovascular: No Edema, No JVD, No Murmur, No Gallop, Normal Peripheral Pulses, Regular Rate/Rhythm Breast Exam: Deferred Gastrointestinal: No Organomegaly, Non Tender, No Pulsatile Mass, Normal Bowel Sounds, Soft Genitalia: Deferred Pelvic: Deferred Rectal: Deferred Extremities: No calf tenderness, Normal capillary refill, Normal inspection, Normal range of motion, Non-tender, No pedal edema Musculoskeletal : Apperance: Normal Neurologic: Alert, paper cone maker II-XII nml as Tested, No Motor Deficits, Normal Affect, Normal Mood, No Sensory Deficits Cerebellar Function: Normal Reflexes: Normal Skin: Dry, Normal Color, Warm Peripheral Pulses: 2+ carotid (R), 2+ carotid (L) Lymphatic: No Adenopathy Was a procedure done? Was a procedure done?: No Differential Dx Considerations may include: TENSION HEADACHE, MIGRAINE HEADACHE, BRAIN MASS, BRAIN BLEED, TONSILLITIS, PHARYNGITIS, VIRAL SYNDROME, OTITIS MEDIA, SINUSITIS X-Ray, Labs, Meds, VS Vital Signs Date Time Temp Pulse Resp B/P (MAP) Pulse Ox O2 Delivery O2 Flow Rate FiO2 07/23/25 07:42 75 18 136/91 (106) 95 07/23/25 06:20 76 15 98 Room Air* 0 21 07/23/25 06:19 99.7 76 15 141/91 (108) 98 99.7 07/23/25 05:57 100.0 88 16 151/78 95 100.0 Current Medications Medications (Trade) Dose Ordered Sig/Deuce Route Start Time Stop Time Status Last Admin Ceftriaxone Sodium (Rocephin) 1,000 mg ONCE ONCE IM 07/23/25 07:15 07/23/25 07:16 DC 07/23/25 08:26 Ketorolac Tromethamine (Toradol Injection) 60 mg ONCE ONCE IM 07/23/25 07:15 07/23/25 07:16 DC 07/23/25 08:26 Acetaminophen (Tylenol Tablet) 1,000 mg ONCE ONCE PO 07/23/25 07:15 07/23/25 07:16 DC 07/23/25 08:26 Ondansetron HCl (Zofran Po) 8 mg ONCE ONCE PO 07/23/25 08:45 07/23/25 08:46 07/23/25 08:35 CLINICAL INFORMATION: Headache. TECHNIQUE: Axial imaging was obtained through the brain without contrast. Coronal and sagittal reformatted images were obtained, reviewed, and stored. Images were reviewed in brain and bone windows. All CT scans at this medical facility are performed using dose modulation techniques as appropriate to a performed exam including the following: Automated exposure control was utilized; adjustment of the MA and/or KV according to patient size; and use of iterative reconstruction technique. CTDIvol = 63.26 mGy DLP = 1246.53 mGy-cm COMPARISON: CT HEAD WITHOUT CONTRAST on DOS: 11/06/24, CT HEAD WITHOUT CONTRAST on DOS: 07/29/23, CT HEAD WITHOUT CONTRAST on DOS: 03/23/23 FINDINGS: There is no acute intracranial hemorrhage. No mass effect or midline shift. The ventricles and sulci are within normal limits in size for age. Basal cisterns are patent. The calvarium is unremarkable. Paranasal sinuses and mastoid air cells are clear. IMPRESSION: No CT evidence of acute intracranial abnormality. ATED BY: MIKE HUGHES DO DICTATED DATE/TIME: 07/23/25804 SIGNED BY: MIKE HUGHES DO SIGNED DATE/TIME: 07/23/25804 CC: X-Ray, Labs, Meds, VS Comment EXTERNAL MEDICAL RECORDS REVIEWED: [NONE] INDEPENDENT HISTORIANS: [NONE] SOCIAL DETERMINANTS OF HEALTH: [NONE] LABS ORDERED: NONE REVIEWED AND INTERPRETED RESULTS: NONE IMAGING ORDERED: CT BRAIN TREATMENTS ORDERED: TYLENOL 1G PO, TORADOL 60 MG IM, ROCEPHIN 1G IM PROCEDURES PERFORMED: NONE CRITICAL CARE TIME: NONE I HAVE DISCUSSED THE PATIENT WITH THE ATTENDING PHYSICIAN DR. REYES AND HE AGREES WITH THE PATIENT'S PLAN OF CARE AND DISPOSITION. BASED ON HISTORY OF PRESENT ILLNESS, AND PHYSICAL EXAM, PATIENT WILL BE DISCHARGED HOME. DISCUSSED PLAN FOR DISCHARGE HOME WITH RX []. MEDICATION WA RNINGS GIVEN. SHARED DECISION MAKING: DISCUSSED WITH PATIENT THAT THEIR WORKUP WAS NORMAL. PATIENT INSTRUCTED TO FOLLOW UP WITH PRIMARY CARE PROVIDER IN 1-2 DAYS FOR RE- EVALUATION OF SYMPTOMS. PATIENT VERBALIZES UNDERSTANDING TO RETURN TO ED FOR NEW OR WORSENING SYMPTOMS OR IF FOLLOW UP WITH PCP CANNOT BE OBTAINED. PATIENT FEELS COMFORTABLE GOING HOME AT THIS TIME. ALL QUESTIONS ADDRESSED AT TIME OF DISCHARGE. Images Reviewed?: Images reviewed and evaluated by me Time of 1ST Reevaluation: 08:46 Reevaluation 1ST: Improved Patient Education/Counseling: Diagnosis, Treatment, Need For Follow Up Family Education/Counseling: Diagnosis, Treatment, Need For Follow Up Medical Screening: No EMC Exist At This Time SEPSIS Sepsis Screen Date sepsis recognized/suspect: Jul 23, 2025 Time Sepsis recognized/suspect: 619 Recent Procedure: No On Antibiotic Therapy: No Respiratory Rate >20: No Heart Rate >90: No Temp<36 C (96.8 F) or >38.3 C: No SBP <90 or MAP <65 mmHG: No New Acute Mental Status Change: No Is the patient on CPAP, BIPAP,: No Physician Orders Head Without Contrast (07/23/25 07:05) Ondansetron Po (Zofran Po) (07/23/25 08:45) Vital Signs Date Time Temp Pulse Resp B/P (MAP) Pulse Ox O2 Delivery O2 Flow Rate FiO2 07/23/25 07:42 75 18 136/91 (106) 95 07/23/25 06:20 76 15 98 Room Air* 0 21 07/23/25 06:19 99.7 76 15 141/91 (108) 98 99.7 07/23/25 05:57 100.0 88 16 151/78 95 100.0 Medications Medications Dose Ordered Sig/Deuce Route Start Time Stop Time Status Last Admin Dose Admin Acetaminophen 1,000 mg ONCE ONCE PO 07/23/25 07:15 07/23/25 07:16 DC 07/23/25 08:26 Ceftriaxone Sodium 1,000 mg ONCE ONCE IM 07/23/25 07:15 07/23/25 07:16 DC 07/23/25 08:26 Ketorolac Tromethamine 60 mg ONCE ONCE IM 07/23/25 07:15 07/23/25 07:16 DC 07/23/25 08:26 Ondansetron HCl 8 mg ONCE ONCE PO 07/23/25 08:45 07/23/25 08:46 07/23/25 08:35 Departure 1 Departure Time of Disposition: 09:00 Impression: Primary Impression: Tension headache Additional Impression: Acute tonsillitis Qualified Codes: J03.90 - Acute tonsillitis, unspecified Disposition: 01 HOME / SELF CARE / HOMELESS Condition: Stable Additional Instructions: FOLLOW-UP WITH PCP IN 1 TO 2 DAYS. TAKE MEDICATIONS PRESCRIBED. RETURN TO ED FOR ANY NEW OR WORSENING SYMPTOMS. e-Prescriptions Ibuprofen (Ibuprofen) 800 Mg Tab 1 TAB PO QID, #30 TAB Prov: CHINA ALDANA 07/23/25 Azithromycin (Azithromycin) 500 Mg Tab 1 TAB PO DAILY, #5 TAB Prov: CHINA ALDANA 07/23/25 Discharged With: Self, Relative Critical Care Note Critical Care Time?: No Stability Stability form required: No I personally scribed for CHINA ALDANA ([email or web address]) on 07/23/25 at 07:26. Electronically submitted by Steven Pickering ([email or web address]). I personally scribed for CHINA ALDANA ([email or web address]) on 07/23/25 at 08:26. Electronically submitted by Steven Pickering ([email or web address]). CHINA LADANA Jul 23, 2025 07:26
[2025-07-23 07:42] VITALS: BP 136/91; PULSE 75; RESP 18; O2SAT 95
--- NOTE | 2025-07-23 08:07 | DVH ---
CLINICAL INFORMATION: Headache. TECHNIQUE: Axial imaging was obtained through the brain without contrast. Coronal and sagittal reformatted images were obtained, reviewed, and stored. Images were reviewed in brain and bone windows. All CT scans at this medical facility are performed using dose modulation techniques as appropriate to a performed exam including the following: Automated exposure control was utilized; adjustment of the MA and/or KV according to patient size; and use of iterative reconstruction technique. CTDIvol = 63.26 mGy DLP = 1246.53 mGy-cm COMPARISON: CT HEAD WITHOUT CONTRAST on DOS: 11/06/24, CT HEAD WITHOUT CONTRAST on DOS: 07/29/23, CT HEAD WITHOUT CONTRAST on DOS: 03/23/23 FINDINGS: There is no acute intracranial hemorrhage. No mass effect or midline shift. The ventricles and sulci are within normal limits in size for age. Basal cisterns are patent. The calvarium is unremarkable. Paranasal sinuses and mastoid air cells are clear. IMPRESSION: No CT evidence of acute intracranial abnormality.
[2025-07-23] MEDS: cefTRIAXone SOD 1,000 MG VL IM ONE (08:26)
[2025-07-23] MEDS: KETOROLAC TROMETH 60MG/2ML VIAL IM ONE (08:26)
[2025-07-23] MEDS: ACETAMINOPHEN 325 MG TAB PO ONE (08:26)
[2025-07-23] MEDS: ONDANSETRON ODT 4 MG TAB PO ONE (08:35)
[2025-07-23] MEDS ORDERED: IBUP-1456 PO (08:36)
[2025-07-23] MEDS ORDERED: AZIT500T66 PO (08:36)
== END 2025-07-23 08:56 | disposition home or self-care (01) ==
LOC: EDBD 05:57 → ER 05:57
DX: G44.209 Tension-type headache, unspecified, not intractable (principal); J03.90 Acute tonsillitis, unspecified; F17.210 Nicotine dependence, cigarettes, uncomplicated; F10.90 Alcohol use, unspecified, uncomplicated; I11.0 Hypertensive heart disease with heart failure; I50.9 Heart failure, unspecified; E78.5 Hyperlipidemia, unspecified; F41.9 Anxiety disorder, unspecified; G89.29 Other chronic pain; Z79.899 Other long term (current) drug therapy; Z90.710 Acquired absence of both cervix and uterus; Z88.5 Allergy status to narcotic agent; Z79.891 Long term (current) use of opiate analgesic; Z79.52 Long term (current) use of systemic steroids; Z79.890 Hormone replacement therapy
CPT/HCPCS: 70450; 96372; 99285; J0696; J1885; Q0162